=== PATIENT | male | born 1940 | race Caucasian/White ===

== ENCOUNTER 2025-03-14 09:14 | Emergency (ER) | payer MEDICARE, SELFPAY ==
--- OUTSIDE RECORDS SUMMARY | 2001-02-24 05:30 | XMS_ITS | Continuity of Care Document ---
Author Organization 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 No Information Feb-0 8-200 1 Leonardo OD Miguel. [address] , [address], [place], [address], [place]. tel:[phone] Family History Family Member Type Diagnosis Age At Onset No Information Payers Payer name Insurance type Covered democrat ID Authoriza tion(s) No Information Social History Type Description Quantity Date Captured Comments Sex Male Smoking Status No Information Chief Complaint And Reason For Visit No Information Reason For Referral Reason For Referral No Information History Of Present Illness Encounter Date Complaint History Of Prese nt Illness No Information Functional Status Date Functional Assessmen t No Information Instructions Date Instruction Additional Infor mation No Information Assessments Type Assessment Date No Information Patient Care Teams Name Effective Dates (start - stop) Status Members No Information
--- NOTE | ~2025-03-14 | CT_ITS ---
CT HEAD NON-CONTRAST Clinical History: head injury Comparison: None Technique: Unenhanced axial images skull base to vertex Coronal, sagittal reformats CT images acquired with automatic exposure control for dose reduction DLP: 681 mGy-cm Findings: Age-related atrophy. Chronic white matter microvascular ischemic changes. Sulci, ventricles: Unremarkable. No intracerebral hemorrhage. No evidence acute territorial infarct. No mass effect, midline shift. Bony calvarium intact. Visualized paranasal sinuses: Clear. Mastoid air cells: Clear. Left frontal scalp hematoma. IMPRESSION: 1. No acute intracranial findings. Reviewed, dictated and finalized at location R.
--- OUTSIDE RECORDS SUMMARY | 2025-03-14 09:16 | XMS_ITS | Encounter Summary ---
Author Organization [facility] Address [address] [place] [address] Phone Care Team Providers Care Yard Associate Name Role Phone Iram KnightRosendo PT Unavailable [phone] Amy Goodwin DPT Unavailable [phone] Miguel Piedra MD Primary Care Provider [phone] Encounter Details Date Type Department Care Team (Late st Contact Info) Description 12/10/2022 Telephone [facility] Medicine Cardiology [address] [facility] [address] Medicine [address]th [place] [address] [place] [address] Boone Mejia MD PhD [address] [facility] [address] [place], [place] [id number] Social History Tobacco Use Types Packs/Day Years Used Date Smoking Tobacco: Former Cigarettes 1 18 0 05/20/1960 - 05/20/1978 Smokeless Tobacco: Never Comments:Smoking History Pac ks/day: 1 Packs Alcohol Use Standard Drinks/Week Comments No 0 (1 standard drink = 0.6 oz pur e alcohol) AUDIT-C Answer Date Recorded Q1: How often do you have a drink containing alcohol? Never 10/23/2021 Q2: How many drinks containi ng alcohol do you have on a typical day when you are drinking? Patient does not drink Q3: How often do you have si x or more drinks on one occasion? 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 Gender Identity Not on file Sexual Orientation Not on file documented as of this encounter Plan of Treatment Upcoming Encounters Date Type Department Care Team (Late st Contact Info) Description 09/21/2025 7:30 AM CDT Hospital Encounter [address] [address] Miguel العلي DO [address] [facility] [address] [place] [address] 09/21/2025 7:30 AM CDT - 09/21/2025 8:00 AM CDT Surgery [address] [address] Miguel العلي DO [address] [facility] [address] [place] [address] COLONOSCOPY Scheduled Procedures Name Priority Associated Diagnoses Date/Ti me COLONOSCOPY Encounter for screening colonoscopy 09/21/2025 7:30 AM CDT documented as of this encounter Visit Diagnoses Not on filedocumented in this encounter Care Teams Yard Associate Relationship Specialty Start Date End Date Miguel Piedra MD [address] [place] [address] PCP - General Family Medicine 10/23/21 Iram Knight, PT Physical Therapist Physical Therapy 11/07/17 Amy Goodwin DPT Physical Therapist Physical Therapy 11/07/17 documented as of this encounter
--- OUTSIDE RECORDS SUMMARY | 2025-03-14 09:17 | XMS_ITS | Data Portability ---
Author Organization [place] - [facility] [address] Address [address] [place] [address] Care Team Providers Care Mysql Developer Name Role Phone LUIZ KAUR Primary Care Provider RAPHAEL DOWLING Orthopedic Surgeon Assessment Encounter Date Assessment Date Assessment LastModified by Organization Details LastModified Time 05/30/2022 05/30/2022 He has arthritis of his hip is also having some back issues I suspect he has a component of spinal stenosis Not available 06/06/2022 07:02:28 Plan of Treatment Reminders Order Date Submit Date Provider Last Modified By Organization Details Last Modified Time Details Appointments None recorde d. Lab rapid SARS CoV 2 Ag, QL IA, respira tory specime n 2024 025 [email or web address] In-Office Order, Internal Use Only DO Not Attach Compendium DO Not Attach Compendium, Do Not Delete/merge, 5 09:13:35 rapid flu (A+B) 2024 025 [email or web address] In-Office Order, Internal Use Only DO Not Attach Compendium DO Not Attach Compendium, Do Not Delete/merge, 09:13:35 infecti ous disease panel 2024 025 [facility], [address], [place], [address], 5 08:19:55 Referral physica l therapi st referra l 2022 023 [email or web address] [facility] (PT/OT), [address] [facility], [address], [address], 3 07:49:[address] referra l 2022 023 [email or web address] Not available 3 08:08:25 Procedures None recorde d. Surgeries None recorde d. Imaging MRI, lumbar spine, w/o contras t 2022 023 SUJIT Not available 3 15:36:13 CT, lumbar spine, w/o contras t 2022 023 SUJIT Not available 3 16:28:49 Medication Orders benzona escalante 100 mg capsule 2024 025 [facility] #[id number], [address] [place], [address], 5 09:18:25 Medrol (Dante) 4 mg tablets in a dose pack 2021 022 Not available 3 14:24:19 Patient Targets Encounter Date Encounter Id Patient Goals Patient Target Last Modified By Organization Details Last Modified Time 05/04/2022 [id number] X-ray of the right hip from the [facility] reveals advanced osteoarthritis of the right hip with some subluxation lateral subluxation [id number] Not available 05/04/2022 10:18:02 05/30/2022 [id number] X-ray of the right hip from the [facility] reveals advanced osteoarthritis of the right hip with some subluxation lateral subluxation [id number] Not available 05/30/2022 14:22:26 Patient Instructions Encounter Date Encounter Id Patient Instructions Last Modified By Organization Details Last Modified Time 05/04/2022 [id number] Activity level was discussed with patient. All limitations and mobility were reviewed with the patient. Precautions including limitations on lifting, elevation and driving were discussed. The patient was given a Medrol Dosepak. The instructions for taking the medication was given to the patient including not to take it on an empty stomach. Some side effects were discussed including feeling anxious and flush. The patient will call the office with any adverse side effects Not available 05/04/2022 10:24:17 05/30/2022 [id number] Activity level was discussed with patient. All limitations and mobility were reviewed with the patient. Precautions including limitations on lifting, elevation and driving were discussed. An MRI was ordered because of persistent disease and discomfort. Physical therapy was prescribed for the patient. Formal physical therapy will begin with reducing the discomfort and swelling. It will then progress to range of motion and eventual strengthening. Protocols for physical therapy are well established and monitored by the physical therapist and myself. Not available 05/30/2022 14:36:57 Reason for Referral Physical Therapist Referral for Spinal stenosis Referring Physician: Raphael Dowling, Orthopedic Surgery, Encounter Date: 05/30/2022 Physical Therapist Referral for Osteoarthritis of hip Referring Physician: Raphael Dowling Orthopedic Surgery, Encounter Date: 05/30/2022 Results Created Date Observation Date Name Description Value Unit Range Abnormal Flag Note LastModifiedBy Organization Detail LastModifiedTime 07/12/1907/14/2024 [facility], C; mefa 21.052 ppm 23.000 - 27.611 abnormal Detec geronimo Not Available [facility] [address], [place], [address], 07/14/2024 08:19:55 07/12/1907/14/2024 [facility] tet B, tet M 22.424 ppm 23.000 - 27.778 abnormal Detec geronimo Not Available [facility] [address], [place], [address], 07/14/2024 08:19:55 07/12/1907/14/2024 [facility] covid-19 coronavirus (sars-cov-2) 0.000 ppm 23.000 - 32.500 normal Not Detec geronimo Not Available [facility] [address], [place], [address], 07/14/2024 08:19:55 07/12/1907/14/2024 [facility] enterovirus D68 0.000 ppm 23.000 - 32.117 normal Not Detec geronimo Not Available [facility] [address], [place], [address], 07/14/2024 08:19:55 07/12/1907/14/2024 [facility] haemophilus influenzae 27.524 ppm 19.961 - 24.689 abnormal Detec geronimo Not Available [facility] [address], [place], [address], 07/14/2024 08:19:55 07/12/1907/14/2024 [facility] human metapneumovi jennifer 0.000 ppm 23.000 - 32.210 normal Not Detec geronimo Not Available [facility] [address], [place], [address], 07/14/2024 08:19:55 07/12/1907/14/2024 [facility] influenza virus B 0.000 ppm 23.000 - 30.081 normal Not Detec geronimo Not Available [facility] [address], [place], [address], 07/14/2024 08:19:55 07/12/1907/14/2024 [facility] moraxella catarrhalis 0.000 ppm 19.961 - 24.689 normal Not Detec geronimo Not Available [facility] [address], [place], [address], 07/14/2024 08:19:55 07/12/1907/14/2024 [facility] mycoplasma pneumoniae 0.000 ppm 19.961 - 24.689 normal Not Detec geronimo Not Available [facility] [address], [place], [address], 07/14/2024 08:19:55 07/12/1907/14/2024 [facility] parainfluenz a virus (types 1, 2, 3, 4) 0.000 ppm 23.000 - 31.313 normal Not Detec geronimo Not Available [facility] [address], [place], [address], 07/14/2024 08:19:55 07/12/1907/14/2024 [facility] respiratory syncytial virus (rsvb_VI9999 0015_po) 0.000 ppm 23.000 - 31.722 normal Not Detec geronimo Not Available [facility] [address], [place], [address], 07/14/2024 08:19:55 07/12/1907/14/2024 [facility] streptococcu s pneumoniae 0.000 ppm 19.961 - 24.689 normal Not Detec geronimo Not Available [facility] [address], [place], [address], 07/14/2024 08:19:55 07/12/1907/14/2024 [facility] chlamydia pneumoniae 0.000 ppm 19.961 - 24.689 normal Not Detec geronimo Not Available [facility] [address], [place], [address], 07/14/2024 08:19:55 07/12/1907/14/2024 [facility] bordetella pertussis, parapertussi s, bronchisepti ca 0.000 ppm 19.961 - 24.689 normal Not Detec geronimo Not Available [facility] [address], [place], [address], 07/14/2024 08:19:55 07/12/1907/14/2024 [facility] coronaviruse s (229E, nl63, hku1, oc43) (g_betacoron avirus_1_g_c oronavirus_h ku1) 0.000 ppm 23.000 - 31.416 normal Not Detec geronimo Not Available [facility] [address], [place], [address], 07/14/2024 08:19:55 07/12/19 25 07/14/2024 [facility] rhinovirus/e nterovirus (RV_2of2_VI9 9990017_po) 0.000 ppm 23.000 - 32.985 normal Not Detec geronimo Not Available [facility] [address], [place], [address], 07/14/2024 08:19:55 07/12/19 25 07/14/2024 [facility] adenovirus (adv_1of2_VI 99990001_po) 0.000 ppm 23.000 - 31.943 normal Not Detec geronimo Not Available [facility] [address], [place], [address], 07/14/2024 08:19:55 07/12/19 25 07/12/2024 rapid flu (A+B) Infection Control Manager Cuauhtemoc Houser Not Available In-Office Order Internal Use Only DO Not Attach Compendium DO Not Attach Compendium, Do Not Delete/merge, 07/12/2024 09:07:41 07/12/1907/12/2024 rapid flu (A+B) Test Strip Lot Number [id number] Not Available In-Office Order Internal Use Only DO Not Attach Compendium DO Not Attach Compendium, Do Not Delete/merge, 07/12/2024 09:07:41 07/12/1907/12/2024 rapid flu (A+B) Test Strip Expiration Date 2025 Not Available In-Office Order Internal Use Only DO Not Attach Compendium DO Not Attach Compendium, Do Not Delete/merge, 07/12/2024 09:07:41 07/12/19 25 07/12/2024 rapid flu (A+B) Procedural Control Valid yes Not Available In-Off ice Order Internal Use Only DO Not Attach Compendium DO Not Attach Compendium, Do Not Delete/merge, 07/12/2024 09:07:41 07/12/1907/12/2024 rapid flu (A+B) Flu A negati ve Not Available In-Office Order Internal Use Only DO Not Attach Compendium DO Not Attach Compendium, Do Not Delete/merge, 07/12/2024 09:07:41 07/12/19 25 07/12/2024 rapid flu (A+B) Flu B negati ve Not Available In-Office Order Internal Use Only DO Not Attach Compendium DO Not Attach Compendium, Do Not Delete/merge, 07/12/2024 09:07:41 07/12/19 25 07/12/2024 rapid SARS CoV 2 Ag, QL IA, respi rator y speci men Is this the patient's first test for COVID-19? No Not Available In-Off ice Order Internal Use Only DO Not Attach Compendium DO Not Attach Compendium, Do Not Delete/merge, 07/12/2024 09:07:37 07/12/19 25 07/12/2024 rapid SARS CoV 2 Ag, QL IA, respi rator y speci men Is the patient symptomatic of COVID-19 per the CDC Guidelines? Yes Not Available In-O ffice Order Internal Use Only DO Not Attach Compendium DO Not Attach Compendium, Do Not Delete/merge, 07/12/2024 09:07:37 07/12/1907/12/2024 rapid SARS CoV 2 Ag, QL IA, respi rator y speci men If yes, date of onset symptoms (mm/dd/yy): 2024 Not Available In-Office Order Internal Use Only DO Not Attach Compendium DO Not Attach Compendium, Do Not Delete/merge, 07/12/2024 09:07:37 07/12/19 25 07/12/2024 rapid SARS CoV 2 Ag, QL IA, respi rator y speci men Is the patient employed in healthcare? No Not Available In-O ffice Order Internal Use Only DO Not Attach Compendium DO Not Attach Compendium, Do Not Delete/merge, 07/12/2024 09:07:37 07/12/19 25 07/12/2024 rapid SARS CoV 2 Ag, QL IA, respi rator y speci men Is the patient hospitalized ? No Not Available In-Off ice Order Internal Use Only DO Not Attach Compendium DO Not Attach Compendium, Do Not Delete/merge, 07/12/2024 09:07:37 07/12/19 25 07/12/2024 rapid SARS CoV 2 Ag, QL IA, respi rator y speci men Is the patient in the ICU? No Not Available In-Off ice Order Internal Use Only DO Not Attach Compendium DO Not Attach Compendium, Do Not Delete/merge, 07/12/2024 09:07:37 07/12/19 25 07/12/2024 rapid SARS CoV 2 Ag, QL IA, respi rator y speci men Congregate care resident (e.g. prison, homeless prison, etc.)? No Not Available In-Off ice Order Internal Use Only DO Not Attach Compendium DO Not Attach Compendium, Do Not Delete/merge, 07/12/2024 09:07:37 07/12/19 25 07/12/2024 rapid SARS CoV 2 Ag, QL IA, respi rator y speci men ? No Not Available In-Offic e Order Internal Use Only DO Not Attach Compendium DO Not Attach Compendium, Do Not Delete/merge, 07/12/2024 09:07:37 07/12/1907/12/2024 rapid SARS CoV 2 Ag, QL IA, respi rator y speci men [place] where patient [place]: [place] Not Available In-Office Order Internal Use Only DO Not Attach Compendium DO Not Attach Compendium, Do Not Delete/merge, 07/12/2024 09:07:37 07/12/19 25 07/12/2024 rapid SARS CoV 2 Ag, QL IA, respi rator y speci men LOT: [id number] Not Available In-Office Order Internal Use Only DO Not Attach Compendium DO Not Attach Compendium, Do Not Delete/merge, 07/12/2024 09:07:37 07/12/19 07/12/2024 rapid SARS CoV 2 Ag, QL IA, respi rator y speci men EXP: 2025 Not Available In-Office Order Internal Use Only DO Not Attach Compendium DO Not Attach Compendium, Do Not Delete/merge, [id number] 07/12/2024 09:07:37 07/12/19 25 07/12/2024 rapid SARS CoV 2 Ag, QL IA, respi rator y speci men COVID-19 Result: negati ve Not Available In-Office Order Internal Use Only DO Not Attach Compendium DO Not Attach Compendium, Do Not Delete/merge, [id number] 07/12/2024 09:07:37 04/25/20 22 04/20/2022 XR, hip + pelvi s, bilat eral, 2 view No observ ation record ed. [email or web address] Not Available 13:38:16 06/05/19 23 06/05/2022 CT, lumba r spine , w/o contr ast [facility] JUDD Corrales MRN:[id number] t: : [birth year]45 Sex Male : [facility]: Orderi ng Physic anupama: RAPHAEL JONES MD Comput ed Tomogr aphy ACCESS ION EXAM DATE/T ROMAN [id number] 023 15:29 EST Reason For Exam M48.06 2 Report PROCED URE INFORM ATION: Exam: CT Lumbar Spine Withou t Contra st Exam date and time: 023 3:30 PM Age: 81 years old Clinic al indica tion: Spinal stenos is, lumbar region with neurog enic claudi cation ; Pain; Additi onal info: M48.06 2 TECHNI QUE: Imagin g protoc ol: Comput ed tomogr aphy of the lumbar spine withou t contra st. Radiat ion optimi zation : All CT scans at this facili ty use at least one of these dose optimi zation techni ques: automa geronimo exposu re contro l; mA and/or kV adjust ment per patien t size (inclu delmy target ed exams where dose is matche d to clinic al indica tion); or iterat gricel recons tructi on. COMPAR IRAIS: No releva nt prior studie s availa ble. FINDIN GS: There is a levoco nvex mild lumbar scolio sis on pinedo l imagin g. On sagitt al imagin g lumbar verteb ral well-a ligned . There are change s of degene rative spondy losis with margin al osteop hyte format ion anteri dana loss in height of the L1-L2 L4-L5 and L5-S1 disc. Lumbar verteb ra mainta in in height . No lumbar fractu re or focal marrow replac ement. At L1-L2 spinal canal diamet er measur ements and forami na mainta ined. L2-L3 and L3-L4 spinal canal diamet er measur ements and forami na mainta ined. L4-L5 broad- based bulgin g annulu s and degene rative change s facet joints there is a subtle encroa chment inferi or aspect both forami na. L5-S1 wellness director ior bulgin g annulu s wellness director ior margin al osteop hyte format ion and degene rative change s facet joints . There is encroa chment inferi or aspect both forami na. Visual ized sacrum unrema rkable other than degene rative change s sacroi liac joints . IMPRES VIRGEN: Levoco nvex lumbar scolio sis with change s of degene rate spondy losis result ing in encroa chment inferi or aspect both forami na subtle nature L4-L5 and mild encroa chment inferi or aspect both forami na at L5-S1. AP diamet er spinal canal mainta ined at all levels . COMMEN TS: Unless otherw ise specif ied, incide ntal findin gs do not requir e dedica geronimo imagin g and follow -up. Comput ed Tomogr aphy Report Miguel Gregory MD On 2022 16:28: 28; VR-NPR [id number] Final Signed by: MIGUEL GREGORY MD Signed (Elect veronica Signat ure): 2022 04:28 pm EST [email or web address] [facility] [address] [address] [facility], [place], [address], 07/11/2022 15:52:50 06/06/19 23 05/30/2022 MRI, lumba r spine , w/o contr ast No observ ation record ed. BARCODE Not Available 2022 15:36:13 08/31/19 23 08/18/2022 US, echoc ardio gram, trans thora cic, compl ete, w/ color flow No observ ation record ed. [email or web address] Not Available 2022 10:10:19 Result Notes Documentation Provider Name and Address Organization Details Recorded Time Ct, Lumbar Spine, W/o Contrast : [facility] JUDD Marie t: : 1940 Sex Male : Locatio [facility] RAD n: Ordering Physician: RAPHAEL DOWLING MD Computed Tomography ACCESSION EXAM DATE/TIME [id number] 06/05/2022 15:29 EST Reason For Exam M48.062 Report PROCEDURE INFORMATION: Exam: CT Lumbar Spine Without Contrast Exam date and time: 06/05/2022 3:30 PM Age: 81 years old Clinical indication: Spinal stenosis, lumbar region with neurogenic claudication; Pain; Additional info: M48.062 TECHNIQUE: Imaging protocol: Computed tomography of the lumbar spine without contrast. Radiation optimization: All CT scans at this facility use at least one of these dose optimization techniques: automated exposure control; mA and/or kV adjustment per patient size (includes targeted exams where dose is matched to clinical indication); or iterative reconstruction. COMPARISON: No relevant prior studies available. FINDINGS: There is a levoconvex mild lumbar scoliosis on coronal imaging. On sagittal imaging lumbar vertebral well-aligned. There are changes of degenerative spondylosis with marginal osteophyte formation anteriorly loss in height of the L1-L2 L4-L5 and L5-S1 disc. Lumbar vertebra maintain in height. No lumbar fracture or focal marrow replacement. At L1-L2 spinal canal diameter measurements and foramina maintained. L2-L3 and L3-L4 spinal canal diameter measurements and foramina maintained. L4-L5 broad-based bulging annulus and degenerative changes facet joints there is a subtle encroachment inferior aspect both foramina. L5-S1 posterior bulging annulus posterior marginal osteophyte formation and degenerative changes facet joints. There is encroachment inferior aspect both foramina. Visualized sacrum unremarkable other than degenerative changes sacroiliac joints. IMPRESSION: Levoconvex lumbar scoliosis with changes of degenerate spondylosis resulting in encroachment inferior aspect both foramina subtle nature L4-L5 and mild encroachment inferior aspect both foramina at L5-S1. AP diameter spinal canal maintained at all levels. COMMENTS: Unless otherwise specified, incidental findings do not require dedicated imaging and follow-up. Computed Tomography Report Miguel Gregory MD On 06/05/2022 16:28:28; [id number] Final Signed by: MIGUEL GREGORY MD Signed (Electronic Signature): 06/05/2022 04:28 pm LINCOLN INFANTE NP [address] [facility],[address], [address], [place] - [facility] [place] 07/11/2022 15:52:50 Problems Name Problem SNOMED Code Status Onset Date Resolution Date Notes Provider Name and Address Organization Details Recorded Time Osteoarthri tis of hip 004635136 Active 2021 Whitney Dicostanz o, AUTOMOTIVE MAINTENANCE TECHNICIAN null, [place] - [facility] [place] 2 10:20:35 Subluxation of hip joint 932935718 Active 2021 Whitney Dicostanz o, AUTOMOTIVE MAINTENANCE TECHNICIAN null, [place] - [facility] [place] 2 10:21:51 Pain of right hip joint 5059992492524 02 Active 2021 Whitney Dicostanz o, AUTOMOTIVE MAINTENANCE TECHNICIAN null, [place] - [facility] [place] 2 10:21:58 Trochanteri c bursitis of right hip 1071645468156 00 Active 2021 Whitney Dicostanz o, AUTOMOTIVE MAINTENANCE TECHNICIAN null, [place] - [facility] [place] 2 10:23:36 Spinal stenosis 55468882 Active 2022 Whitney Dicostanz o, AUTOMOTIVE MAINTENANCE TECHNICIAN null, [place] - [facility] [place] 3 14:35:10 Haemophilus influenzae infection 47332980 Active 2024 ARACELI AGUSTIN [address] [place], [address], [facility] [place] 5 19:39:43 Problem Notes None recorded. Procedures Surgical History Date Name Laterality Status Provider Name and Address Organization Details Recorded Time 2 Right Troch Bursa Cortisone Injection - Beretta completed Whitney Rico AUTOMOTIVE MAINTENANCE TECHNICIAN [place] - [facility] [place] 05/04/2022 10:24:27 4 Pacemaker completed Aric White [place] - [facility]14 [place] 05/04/2022 10:16:07 hernia completed Aric White [place] - [facility] 4 [place] 05/04/2022 10:15:17 tonsilectomy/a denoids completed Aric White [place] - [facility] [place] 05/04/2022 10:15:27 repair in forearm completed Aric White [place] [facility] [place] 05/04/2022 10:15:52 Imaging Results None recorded. Procedure Notes None recorded. Medical Equipment None Reported. Allergies No known drug allergies Medications Name Sig Start Date Stop Date Status Note LastModified by Organization Details LastModified Time Medrol (Dante) 4 mg tablets in a dose pack Take 1 dose pk by oral route as directed . 05/30 completed Not Available Not Available Not Available benzonatate 100 mg capsule Take 1 capsule 3 times a day by oral route. 2024 active Not Available Not Available Not Avai lable amoxicillin 875 mg-potassium clavulanate 125 mg tablet Take 1 tablet every 12 hours by oral route for 10 days. 2024 active Not Available Not Available Not Avai lable escitalopram 10 mg tablet Take 1 tablet every day by oral route. active Not Available Not Available No t Available tamsulosin active Not Available Not Av ailable Not Available venlafaxine active Not Available Not A vailable Not Available hydrochlorot hiazide active Not Available Not Available Not Available simvastatin active Not Available Not A vailable Not Available lisinopril active Not Available Not Av ailable Not Available Eliquis 5 mg tablet Take 1 tablet twice a day by oral route. active Not Available Not Available No t Available aspirin 81 mg capsule Take 1 capsule every day by oral route. active Not Available Not Available No t Available Vitals Date Recorded Body height Body mass index (BMI) Body weight Provider Name and Address Organization Details Last Updated DateTime 05/30/2022 168.91 cm 26.6 kg/m2 66650.93 g Aric CHENG - [facility] [place] 05/30/2022 14:24:09 Date Recorded Body weight Body mass index (BMI) Body height Body temperature Heart rate Respiratory rate Oxygen saturation Oxygen saturation in Arterial blood by Pulse oximetry Pain severity - 0-10 verbal numeric rating [Score] - Reported Systolic And Diastolic Provider Name and Address Organization Details Last Updated DateTime 5 90500.9 3 g 26.6 kg/m2 168.91 cm 98.3 [degF] 71 /min 16 /min 97 % 97 % 3 115/70 mm[Hg] Lucy Lane [facility]14 [place] 5 09:04:58 Date Recorded Body height Body mass index (BMI) Body weight Provider Name and Address Organization Details Last Updated DateTime 05/04/2022 168.91 cm 26.6 kg/m2 03660.93 g Aric CHENG - [facility] [place] 05/04/2022 10:12:36 Social History Question Answer Notes LastModified by Organizat ion Details LastModified Time Tobacco Smoking Status Never [facility] [place] 05/04/2022 10:15:10 What Was The Date Of Your Most Recent Tobacco Screening? 05/04/2022 Information not available 05/04/2022 Has Tobacco Cessation Counseling Been Provided? No [email or web address] Information not available 05/04/2022 Sex: Male Functional Status Question Answer Note LastModified by Organization D etails LastModified Time Do you or have you ever used any other forms of tobacco or nicotine? No [email or web address] Information not available 05/04/2022 What is your level of alcohol consumption? None [email or web address] Information not available 05/04/2022 Mental Status None recorded. Family History Relationship Description Onset Age of this Age Resolved Age Notes LastModified by Organization Details LastModified Time Father Heart disease [email or web address] Not available 2021 10:14:52 Mother Family history of malignant neoplasm [email or web address] Not available 2021 10:14:58 Medical History Condition Response Has Pacemaker Y Heart Problems Y Hypertension Y High Cholesterol Y Past Encounters Encounter ID Performer Location Encounter Start Date Encounter Closed Date Diagnosis/Indication Diagnosis SNOMED-CT Code Diagnosis ICD10 Code Diagnosis IMO Codes Diagnosis Note [id number] RAPHAEL DOWLING MD [facility] [facility] [facility] [address] [facility] [address] [place] [address] 05/04/2022 09:29:30 05/04/2022 10:27:49 Pain of right hip joint 4954508991 25884 M25.551 Osteoarthritis of hip 23 6083222 M16.11 Anticoagulant therapy 18 4450253 Z79.01 Eliquis The patient is currently treated with a blood thinner for systemic disease. This medication significan tly increases the risks of surgical interventi on. They will have to stop the medication for period of time to prevent perioperat gricel bleeding. At that time there would be at risk for blood clots, pulmonary embolism and strokes. Measures to counteract those complicati ons would include hydration, early mobilizati on, deep breathing, ankle pumps and a walking program. In addition there is evidence in the literature that the use of anticoagul ants significan tly increases the risk of postoperat gricel infections . It also diminishes the ultimate clinical outcome of surgical procedures Cardiac pa cemaker in situ [id number] Z95.0 Patient has an indwelling pacemaker that is not compatible with an MRI. That significan tly complicate s the diagnosis. The diagnosis will have to be determined by clinical examinatio n and history. In addition the response to nonsurgica l treatment will be taken into considerat ion. In some cases a CAT scan would be a secondary diagnostic procedure but would not be significan tly helpful for soft tissue considerat ions Subluxatio n of hip joint [id number] S73.001A Trochanter ic bursitis of right hip [id number] 35135 M70.61 After appropriat e consent was obtained from the patient, an injection of 1 cc of Depomedrol 80 mg/mL and 3 cc Lidocaine 1% was given to right troch bursa. There was careful preparatio n of the skin with alcohol. Adverse reactions were discussed with the patient and it was recommende d icing be performed on the night of the injection. Additional diagnosis , treatment, tests or referrals and instructio ns are not part of the procedure or for postproced ural care. The injection procedure was performed due to pain and dysfunctio n that is now affecting activities of daily living, concentrat ion and bodily functions. The pain is refractory to other modalities of treatment. This is the only diagnosis associated with the procedure today. [id number] RAPHAEL DOWLING MD [facility] [address] [facility] [address] [place] [address] 05/30/2022 14:02:38 05/30/2022 15:05:00 Osteoarthritis of hip [id number] M16.11 Trochanter ic bursitis of right hip [id number] 36928 M70.61 Subluxatio n of hip joint [id number] S73.001A Anticoagulant therapy 18 [id number] Z79.01 Eliquis The patient is currently treated with a blood thinner for systemic disease. This medication significan tly increases the risks of surgical interventi on. They will have to stop the medication for period of time to prevent perioperat gricel bleeding. At that time there would be at risk for blood clots, pulmonary embolism and strokes. Measures to counteract those complicati ons would include hydration, early mobilizati on, deep breathing, ankle pumps and a walking program. In addition there is evidence in the literature that the use of anticoagul ants significan tly increases the risk of postoperat gricel infections . It also diminishes the ultimate clinical outcome of surgical procedures Cardiac pa cemaker in situ [id number] Z95.0 Patient has an indwelling pacemaker that is not compatible with an MRI. That significan tly complicate s the diagnosis. The diagnosis will have to be determined by clinical examinatio n and history. In addition the response to nonsurgica l treatment will be taken into considerat ion. In some cases a CAT scan would be a secondary diagnostic procedure but would not be significan tly helpful for soft tissue considerat ions Spinal stenosis [id number] M48.062 This is a chronic, progressiv e, debilitati ng condition with intermitte nt severe exacerbati ons that will significan tly affect activities of daily living because of pain, deformity, weakness and immobility . The patient is now exhibiting an acute severe exacerbati on with accelerati on of symptoms. [id number] Artem lopez MD [facility] [address] [facility] [address] [place] [address] 07/12/2024 08:35:53 07/13/2024 08:52:37 Upper respiratory infection [id number] J06.9 84 yo male with resp infection sx for 6 dayscovid and flu negative; discused with the ptno CURB criteria for admission if an eventual pneumoniah trx pending and will manage as neededuse steamer, nasal saline rinse twice a day ,gargle with salt and water ,chlorasep tic spraypt does not feel that baduse vit C,D,Zinc, bone broth ,honey ,domenica ,turmeric ,probiotic benzonatat e prescribed for coughfollo w up in few days if not betterSeek medical attention right away if worse, new symptoms or concerns. Health Concerns Section Related Observation LastModified by Organization Detai ls LastModified Time None Recorded Concern Status LastModified by Organization Details LastModified Time None Recorded Advance Directives Directive None Recorded Payers Insurance Date Sequence Insurance Name Policy Number Policy Disla Covered Member ID Disla Member ID Guarantor Name 07/11/2024 1 [employer] (PPO) [id number] 1 Judd Andrade [id number] Judd Andrade 06/11/2022 1 [facility] (MEDICARE REPLACEMENT/ ADVANTAGE - PPO) [id number] Judd Andrade [id number] Juddtanya Andrade 06/11/2022 1 [facility] (PPO) Judd Andrade [id number] Juddtanya Andrade 05/30/2022 1 *SELF PAY* Ra eri Andrade Notes Date Note Type Note Provider Name and Address Organization Details Recorded Time 05/04/20 22 text/htm l Hip(s)Reported by PatientHPIFor associated symptoms, patient reportsweakness. For location, patient reportsright. For quality, patient reportsaching,constant, andworsening. For severity, patient reportssevere. For duration, patient reportscontinuous since onset. For timing, patient reportschronicandabrupt. For context, patient reportsoveruse. For alleviating factors, patient reportsrestandlimited weight bearing. For aggravating factors, patient reportsromandweightbearing. For previous surgery, patient reportsnone. For prior imaging, patient reportsx ray (rad reg 04/20/2022). For previous injections, patient reportsnone. For previous pt, patient reportsnone. For work related, patient reportsno. For working, patient reportsno. RAPHAEL DOWLING MD [address], [place], [address], [facility] [place] 05/09/2022 08:01:40 05/30/19 23 text/htm l Hip(s)Reported by PatientHPIFor associated symptoms, patient reportsweakness. For location, patient reportsright. For quality, patient reportsaching,constant, andworsening. For severity, patient reportssevere. For duration, patient reportscontinuous since onset. For timing, patient reportschronicandabrupt. For context, patient reportsoveruse. For alleviating factors, patient reportsrest,limited weight bearing,nsaids (completed medrol dose dante 04/2022), andcortisone injection. For aggravating factors, patient reportsromandweightbearing. For previous surgery, patient reportsnone. For prior imaging, patient reportsx ray (rad reg 04/20/2022). For previous injections, patient reportsdid not help (05/04/2022). For previous pt, patient reportsnone. For work related, patient reportsno. For working, patient reportsno. RAPHAEL DOWLING MD [address], [place], [address], [facility] [place] 06/06/2022 07:02:31 07/12/19 25 text/htm l Upper Respiratory Symptoms - [id number] by PatientHPIFor associated symptoms, patient reportscough,nasal congestion,sore throat, andfeverbut reportsno sneezing,no headache,no chills,no myalgias/arthralgias,no sinus pain,no sputum production,no ear pain,no ear discharge,no nausea,no vomiting,no diarrhea,no abdominal pain,no shortness of breath (dyspnea),no wheezing,no chest pain,no dizziness,no vision disturbances, andno rash. For onset, patient reportssudden. For duration, patient reports6 days. For modifying factors, patient reportsotc medication(s)andtylenol. For risk factors, patient reportsolder than 65 years old.ROS as noted in the HPI cough for 6 days ,fever 101 yesterday not today ; cough productive but no sputum; lethargic ,ST ,slight runny nose,mild Crina MD [address] [place], [address], [facility] [place] 07/12/2024 18:22:21
--- OUTSIDE RECORDS SUMMARY | 2025-03-14 09:17 | XMS_ITS | Encounter Summary ---
Author Organization [facility] Address [address] [place] [address] Phone Care Team Providers Care Custom Frame Assembler Name Role Phone Jean Marie Zimmer MD Primary Care Provider Jean Marie Zimmer MD Primary Care Provider Iram Knight PT Unavailable [phone] Amy Goodwin DPT Unavailable [phone] Miguel Piedra MD Primary Care Provider [phone] Encounter Details Date Type Department Care Team (Late st Contact Info) Description 08/13/2013 Orders Only [facility] Provider, MD Da [address] [place] [address] Social History Tobacco Use Types Packs/Day Years Used Date Smoking Tobacco: Never Assessed Sex and Gender Information Value Date Recorded Sex Assigned at Not on file 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 Gender Identity Not on file Sexual Orientation Not on file documented as of this encounter Plan of Treatment Upcoming Encounters Date Type Department Care Team (Late st Contact Info) Description 09/21/2025 7:30 AM CDT Hospital Encounter [facility] [address] [place] [address] Miguel العلي, DO 4 [facility] [place] [address] 09/21/2025 7:30 AM CDT - 09/21/2025 8:00 AM CDT Surgery [facility] [address] [place] [address] Miguel العلي, [address] [place] [address] [place] [address] COLONOSCOPY Scheduled Procedures Name Priority Associated Diagnoses Date/Ti me COLONOSCOPY Encounter for screening colonoscopy 09/21/2025 7:30 AM CDT documented as of this encounter Procedures Procedure Name Priority Date/Time Associated Diagnosis Comments CARDIOLOGY REPORT 08/13/2013 documented in this encounter Results * CARDIOLOGY REPORT (08/13/2013) Anatomical Region Laterality Modality Other Narrative 08/13/2013 Ordered by an unspecified provider. us Historical Provider [facility] MARIA G WOLFE Final Result documented in this encounter Visit Diagnoses Not on filedocumented in this encounter Additional Health Concerns Infection Onset Date Last Indicated Resolved Time COVID: Suspected 10/01/2021 10/01/2021 10/01/2021 3:51 PM CDT COVID: Suspected 10/01/2021 10/01/2021 10/01/2021 8:43 PM CDT documented as of this encounter Care Teams Custom Frame Assembler Relationship Specialty Start Date End Date Jean Marie Zimmer MD PCP - General 11/15/14 10/22/21 Jean Marie Zimmer MD PCP - General 01/08/11 11/14/14 [place] [address] PCP - General Family Medicine 10/23/21 Iram Knight PT Physical Therapist Physical Therapy 11/07/17 Amy Goodwin DPT Physical Therapist Physical Therapy 11/07/17 documented as of this encounter
--- OUTSIDE RECORDS SUMMARY | 2025-03-14 09:17 | XMS_ITS | Clinical Summary ---
Author Organization [facility] Address [address] [place] [address] Phone Care Team Providers Care Pedodontist Name Role Phone Jean Marie Zimmer MD Primary Care Provider Social History Tobacco Use Types Packs/Day Years Used Date Smoking Tobacco: Never Assessed Sex and Gender Information Value Date Recorded Sex Assigned at Not on file Legal Sex Male 10:42 PM CDT Gender Identity Not on file Sexual Orientation Not on file Plan of Treatment Health Maintenance Due Date Last Done Comments Hepatitis C Virus (HCV) Screening 1940 TdaP Immunization 1940 Pneumococcal Immunization (5 0+ years) (1 of 1 - PCV) 1992 Zoster Immunization (1 of 2) 1992 Respiratory Syncytial Virus (RSV) Immunization (Adult) (1 - 1-dose 75+ series) 2017 Influenza Immunization (#1) 2025 SARS-COV-2 Immunization ( - season) 2025 Hepatitis B Immunization Aged Out No longer eligible based on patient's age to complete this topic Human Papillomavirus (HPV) Immunization Aged Out No longer eligible b ased on patient's age to complete this topic Meningococcal Immunization (ACWY) Aged Out No longer eligible based on patient's age to complete this topic Rotavirus Immunization Aged Out No lo nger eligible based on patient's age to complete this topic Insurance MEDICARE [facility] Care Teams Pedodontist Relationship Specialty Start Date End Date Jean Marie Zimmer MD [address] [place] [address] PCP - General Internal Medicine 04/01/15
--- OUTSIDE RECORDS SUMMARY | 2025-03-14 09:17 | XMS_ITS | Clinical Summary ---
Author Organization [facility] Address [address] [place] [address] Care Team Providers Care Food Inspector Name Role Phone Miguel Piedra MD Primary Care Provider [phone] Source Comments [facility],non-owned Affiliates and Associated Physician Practices is amultiple site organization consisting of ambulatory clinics and hospital sitesin [place], [place], [place] and [place]. This disclosure is being madepursuant to the Care Everywhere program and may not contain all information available regarding this patient. Last updated 18.[facility] Allergies No known active allergies Medications * Be aware that medications may not be up to date on this document. Alwaysverify current medications with the patient. hydroCHLOROthiaz mehdi (HYDRODIURIL) 25 MG tablet Take 1 (one) tablet by mouth once daily 0 Active lisinopril (PRINIVIL; ZESTRIL) 40 MG tablet Take 1 (one) tablet by mouth 2 times daily 1 Active oxybutynin (DITROPAN) 5 MG tablet Take 1 (one) tablet by mouth once daily 0 Active pimecrolimus (ELIDEL) 1 % cream APPLY TO RASH AREAS ON GROIN AREA TWICE DAILY FOR FLARES THEN TWICE WEEKLY FOR MAINTENANCE. 1 Active simvastatin (ZOCOR) 40 MG tablet Take 1 (one) tablet by mouth once daily 1 Active tacrolimus (PROTOPIC) 0.1 % ointmentIndicati ons:Contact dermatitis due to other agent, unspecified contact dermatitis type Apply to affected area on groin, inner thighs BID. 30 day supply. 60 g 2 1 Active hydrocortisone (HYTONE) 2.5 % ointment Apply to affected area twice daily. 30 days supply. 30 g 2 1 Active Additional Information Patient not taking.Reported on 12/15/2021 escitalopram (LEXAPRO) 10 MG tablet Take 1 (one) tablet by mouth once daily 2 Active venlafaxine XR 24hr (EFFEXOR XR) 75 MG capsule Take 2 (two) capsules by mouth once daily 2 Active ELIQUIS 2.5 MG tablet Take 1 (one) tablet by mouth 2 times daily 2 Active ketoconazole (NIZORAL) 2 % shampooIndicatio ns:Other seborrheic dermatitis Apply to face, leave on for 3 minutes, then rinse; three times weekly. 30 days supply 120 mL 3 2 Active ketoconazole (NIZORAL) 2 % creamIndications :Other seborrheic dermatitis APPLY TO SCALY AREAS ON FACE TWICE DAILY as needed 60 g 3 2 Active Active Problems Problem Noted Date Diagnosed Date Nonrheumatic aortic valve stenosis 12/10/2018 Overview (10/07/2020): Last Assessment & Plan: Asymptomatic. Previous 2D echocardiogram detailed above. F/U with coat room attendant recommended Gastroesophageal reflux disease without esophagi tis 11/07/2017 Overview (10/07/2020): Last Assessment & Plan: Optimized with dietary modifications and health weight Glucose intolerance (impaired glucose tolerance) 02/14/2017 Medicare annual wellness visit, subsequent 02/14 Mixed hyperlipidemia 02/14/2017 Overview (10/07/2020): Last Assessment & Plan: Optimized on current therapy with both aspirin and Coumadin therapy for anti thrombolytics therapy, Zocor, and low-fat/heart healthy diet. Also Cnt. With mild to moderate daily exercise for further heart health. F/U with Cardiology as recommended Benign hypertension 08/18/2016 Overview (10/07/2020): Last Assessment & Plan: Normotensive in clinic today. Pt was advised of continuing heart healthy DASH diet, current antihypertensives, increase exercise as tolerated. Risk of HTN were reviewed. 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 Cnt. Metoprolol for rate control. Pt was made aware to stop Coumadin therapy 5 days prior to upcoming blepharoplasty, understanding the risk associated with stroke, thrombi development when deciding to stop medication. He does accept these risks and wishes to move forward with surgery to resume Coumadin dosing after per cardiology's recommendation Family History Medical History Relation Name Comments None Known Brother None Known Father None Known Maternal Aunt None Known Maternal Grandfather None Known Maternal Grandmother None Known Maternal Uncle None Known Mother None Known Other None Known Paternal Aunt None Known Paternal Grandfather None Known Paternal Grandmother None Known Paternal Uncle None Known Sister Asthma Neg Hx CVA Neg Hx Cancer - Breast Neg Hx Cancer - Other Neg Hx Cancer - Skin, Melanoma Neg Hx Cancer - Skin, Non Melanoma Neg Hx Eczema Neg Hx Hemophilia Neg Hx Psoriasis Neg Hx Relation Name Status Comments Brother Father Maternal Aunt Maternal Grandfather Maternal Grandmother Maternal Uncle Mother Other Paternal Aunt Paternal Grandfather Paternal Grandmother Paternal Uncle Sister Social History Tobacco Use Types Packs/Day Years Used Date Smoking Tobacco: Never Smokeless Tobacco: Never Sex and Gender Information Value Date Recorded Sex Assigned at Not on file Legal Sex Male 9:31 AM CDT Gender Identity Not on file Sexual Orientation Not on file Plan of Treatment Health Maintenance Due Date Last Done Comments DTAP/TDAP/TD VACCINES (1 - Tdap) 1961 PNEUMOCOCCAL VACCINE 50+ (1 of 2 - PCV) 1961 ZOSTER VACCINE (1 of 2) 1992 Respiratory Syncytial Virus (RSV) Vaccine Pt: or over 60 yrs (1 - 1-dose 75+ series) 2017 DEPRESSION SCREENING 05/20/2024 MEDICARE AWV CALENDAR YEAR 2024 COVID-19 VACCINE ( season) 2025 09/04/2021 INFLUENZA VACCINE (#1) 2025 2, 02/18/2019, 02/17/2018, Additional history exists HEPATITIS B VACCINE Aged Out No longe r eligible based on patient's age to complete this topic HIB VACCINE Aged Out No longer eligi ble based on patient's age to complete this topic HPV VACCINE Aged Out No longer eligi ble based on patient's age to complete this topic MENINGOCOCCAL (Group B) VACCINE SHARED DECISION-MAKING Aged Out No longer eligible based on patient's age to complete this topic MENINGOCOCCAL GROUPS A/C/Y/W VACCINE Aged Out No longer eligible based on patient's age to complete this topic Insurance [employer] MANAGED MEDICARE ADV AETNA AET[employer] Care Teams Food Inspector Relationship Specialty Start Date End Date Miguel Piedra MD [address] [place] [address] PCP - General Family Medicine 09/06/23
--- OUTSIDE RECORDS SUMMARY | 2025-03-14 09:17 | XMS_ITS | Data Portability ---
Author Organization [facility] [employer], [facility] Address [address] [place] [address] Care Team Providers Care Resident Manager Name Role Phone Unavailable Referring Provider [phone] ROSANNE ORDONEZ Primary Care Provider [phone] Assessment Encounter Date Assessment Date Assessment LastModified by Organization Details LastModified Time 08/18/2016 08/18/2016 X Rays suggestive of acute infiltrate (pending official report). Patient symptomatic. Counseled about condition and treatment. Will follow X Rays results and contact patient. RTC or visit primary doctor in 4 days. RTC or visit ER before if needed. [email or web address] Not available 08/18/2016 14:00:00 Plan of Treatment Reminders Order Date Submit Date Provider Last Modified By Organization Details Last Modified Time Details Appointments None record ed. Lab rapid flu (A+B) 2016 017 carina ramos In-Office Order, Internal Use Only DO Not Attach Compendium DO Not Attach Compendium, Do Not Delete/merge, [id number] 14:30:55 CBC 2015 016 [place] [facility], [address] [place], [address], 6 19:07:57 CMP, serum or plasma 2015 016 [place] [facility], [address] [place], [address], 6 19:08:02 urinal ysis, comple te 2015 016 [facility], [address], [place], [address], 6 19:31:56 vitami n D, 25-hyd timoteo + 1,25-d ihydro xy, serum 2015 016 [facility], [address], [place], [address], 6 19:08:01 PTH (parat hyroid hormon e), intact , serum or plasma 2015 016 [facility], [address], [place], [address], 6 19:31:55 lipid panel, serum 2015 016 [facility], [address], [place], [address], 6 19:31:53 venipu ncture 2015 016 [facility], [address], [place], [address], 6 19:07:58 PT/INR 2014 015 [facility], [address], [place], [address], 5 10:19:57 venipu ncture 2014 015 [facility], [address], [place], [address], 5 10:19:57 Referral None record ed. Procedures None record ed. Surgeries None record ed. Imaging x-ray, chest 2016 017 SUJIT [facility], [facility], All Locations, [place], [address], 7 14:27:41 x-ray, hip 2 views 2014 [facility], All Locations, [place], [address], 5 10:19:57 Medication Orders Zithro max Z-Dante 250 mg tablet 2016 017 [facility] [address] [place], [address], 7 13:58:13 ceftri axone 1 gram soluti on for inject ion 2016 017 [email or web address] nc Not available 7 14:30:55 Tussio nex Pennki netic ER 10 mg-8 mg/5 mL suspen surendra collins xtende d releas e [address] [facility] [address] [place], [address], 7 11:51:51 omepra zole 20 mg tablet ,delay ed releas e 2015 016 [facility] [address] [place], [address], 6 22:14:39 Os-Gaurang 500 + D3 500 mg-5 mcg (200 unit) tablet [address] [facility] [address] [place], [address], 7 12:31:30 Patient TargetsNo targets recorded. Patient Instructions Encounter Date Encounter Id Patient Instructions Last Modified By Organization Details Last Modified Time 03/25/2015 [id number] Keep leg elevated. Use warm compresses/heatin g pad. NATHANAEL wrap offered and refused. If increased pain, numbness or weakness, he will go to ER for further evaluation evan Not available 03/26/2015 10:19:57 06/20/2015 [id number] STOP TUMS START OSCAL PLUS D3 500MG/200UNITS TWICE A DAY START OMEPRAZOLE (OVER THE COUNTER) 20MG ONCE A DAY BRING ALL MEDICATIONS IN THEIR ORIGINAL BOTTLES TO YOUR NEXT APPOINTMENT EXERCISE 30-60 MINUTES 5-7 DAYS A WEEK OLD RECORDS araceli Not available 08/14/2015 22:14:39 PLEASE DO NOT US E THE PATIENT PORTAL FOR URGENT OR EMERGENT MESSAGES. Please do not call office for test results. Results will be given at your next scheduled visit. You will be contacted about any significantly abnormal exam as soon as it has been reviewed. After your follow up apt your test results will be available for you to review on your patient portal. Risks and benefits of treatment/therapy discussed with patient and family members if present. Pt. allowed ample time to ask any questions. Common side effects reviewed as well. Patient understands instructions and will seek medical attention if symptoms worsen as directed. Attachments.me program was used in part of the creation of this note. The voice recognition is set for speed over accuracy. Inherently this may result in phonetic, recognition or omissions errors in this stocking inspector. [email or web address] Not available 06/20/2015 11:48:10 08/18/2015 [id number] TUSSIONEX FOR COUGH Not available 08/18/2015 18:03:58 PLEASE DO NOT US E THE PATIENT PORTAL FOR URGENT OR EMERGENT MESSAGES. Please do not call office for test results. Results will be given at your next scheduled visit. You will be contacted about any significantly abnormal exam as soon as it has been reviewed. After your follow up apt your test results will be available for you to review on your patient portal. Risks and benefits of treatment/therapy discussed with patient and family members if present. Pt. allowed ample time to ask any questions. Common side effects reviewed as well. Patient understands instructions and will seek medical attention if symptoms worsen as directed. Rivono Speaking program was used in part of the creation of this note. The voice recognition is set for speed over accuracy. Inherently this may result in phonetic, recognition or omissions errors in this stocking inspector. Not available 08/18/2015 18:03:25 08/18/2016 [id number] bronchitis: care instructions SUJIT Not available 08/19/2016 05:46:34 Reason for Referral None Reported. Results Created Date Observation Date Name Description Value Unit Range Abnormal Flag Note LastModifiedBy Organization Detail LastModifiedTime 08/19/19 17 08/18/2016 rapid flu (A+B) influenza type A negati ve negati ve Not Available In-Office Order Internal Use Only DO Not Attach Compendium DO Not Attach Compendium, Do Not Delete/merge, [id number] 08/18/2016 13:14:34 08/19/19 17 08/18/2016 rapid flu (A+B) infulenza type B negati ve negati ve Not Available In-Office Order Internal Use Only DO Not Attach Compendium DO Not Attach Compendium, Do Not Delete/merge, [id number] 08/18/2016 13:14:34 03/25/20 15 03/25/2015 PT/IN R protime 27.6 sec 10.8-1 2.8 high Not Available [facility] [address], [place], [address], 03/25/2015 11:40:13 03/25/20 15 03/25/2015 PT/IN R INR 2.8 ratio 0.8-1. 2 high INR INTER PRETA TION: AN INR THERA PEUTI C RANGE OF 2.0-3 .0 IS RECOM SULEMAN D 1) PREVE NTION OF VENOU S THROM BOEMB OLISM IN HIGH RISK PATIE NTS 2) TREAT MENT OF VENOU S THROM BOSIS AND PULMO NARY EMBOL ISM AFTER A COURS E OF HEPAR IN 3) PREVE NTION OF SYSTE TIMOTHY EMBOL ISM IN A VARIE TY OF CONDI TIONS INCLU DING ATRIA L FIBRI LLATI ON AND PROST HETIC TISSU E HEART VALVE S 2.5-3 .5 IS RECOM SULEMAN D ONLY FOR PATIE NTS WITH MECHA NICAL HEART VALVE S & PATIE NTS WITH RECUR RENT SYSTE TIMOTHY EMBOL ISM. >5.0- 5.5 HIGH RISK BLEED ING Not Available [facility] [address], [place], [address], 03/25/2015 11:40:13 03/25/20 15 03/25/2015 venip unctu re venipuncture CHARGE Not Available [facility] [address], [place], [address], 03/25/2015 11:01:23 03/25/20 15 03/25/2015 RT hip 3V PELVIS AND RIGHT HIP: THREE VIEWS Histor y: Pain after injury . Compar gelacio: None. Findin gs: AP pelvis , and AP and obliqu e views of the right hip are submit geronimo. No acute fractu re or malali gnment . Mild degene rative joint space narrow ing is seen. Soft tissue s are unrema rkable . Impres dennis: 1. No acute proces s. Thank you for this referr alRosendo Granados onical ly signed Readin g Radiol ogist: Calvin Vidal MD build [address], [facility], 04/27/2015 04:09:56 08/21/19 17 08/18/2016 chest 2V CHEST: TWO VIEWS Histor y: Cough, conges tion, fever, fatigu e. Compar gelacio: No priors are availa ble for compar gelacio. Techni que: PA and latera l views are perfor med. Findin gs: Left chest pacema ker is presen t. The heart is slight ly enlarg ed. Medias tinal contou rs are normal . No eviden ce of conflu ent pneumo marine or CHF. Degene rative change s are noted in the thorac ic spine. Impres dennis: 1. Slight ly enlarg ed heart. Left chest pacema ker. No defini te acute diseas e. Thank you for this referr alRosendo Granados onical ly signed Readin g Radiol ogist: Jaida hilliard MD [email or web address], [address], 08/21/2016 08:48:44 Result Notes None recorded. Problems Name Problem SNOMED Code Status Onset Date Resolution Date Notes Provider Name and Address Organization Details Recorded Time Atrial fibrillation 85747241 Active [facility] 6 17:05:33 Hyperlipidemia 98583248 Active [facility] 6 17:05:33 Acid reflux 437591868 Active [facility] 6 17:05:33 Left sided abdominal pain 455255365 Active Rosanne Ordonez Jr, MD [address] [facility], [place], [address] [place] [address] 6 19:22:27 Benign hypertension 88601783 Active 2016 Jade Pearson [facility] 7 12:31:54 Problem Notes None recorded. Procedures Surgical History Date Name Laterality Status Provider Name and Address Organization Details Recorded Time 05/20/19 14 Other completed [facility] 06/20/2015 11:39:09 05/20/19 12 EGD-Upper Endoscopy completed [facility] 06/20/2015 11:36:07 05/20/19 11 Pacemaker implantation completed [facility] 06/20/2015 10:43:15 05/20/19 08 Hernia repair completed [facility] 06/20/2015 10:42:33 05/20/19 07 Colonoscopy completed [facility] 06/20/2015 11:35:15 Imaging Results None recorded. Procedure Notes None recorded. Medical Equipment None Reported. Allergies No known drug allergies Medications Name Sig Start Date Stop Date Status Note LastModified by Organization Details LastModified Time metoprolol succinate ER 50 mg tablet,ext ended release 24 hr Take 1 tablet every day by oral route. active Not Available Not Available No t Available Zithromax Z-Dante 250 mg tablet TAKE 2 TABLETS (500 MG) BY ORAL ROUTE ONCE DAILY FOR 1 DAY THEN 1 TABLET (250 MG) BY ORAL ROUTE ONCE DAILY FOR 4 DAYS 2016 active Not Available Not Available Not Avai lable venlafaxin e ER 150 mg capsule,ex tended release 24 hr Take 1 capsule every day by oral route. active Not Available Not Available No t Available simvastati n 40 mg tablet Take 1 tablet every day by oral route. active Not Available Not Available No t Available ceftriaxon e 1 gram solution for injection Take 1 g by injection route. 2016 active 1GM given IM Not Available Not Available Not Available warfarin 5 mg tablet Take 1 tablet every day by oral route. active Not Available Not Available No t Available hydrochlor othiazide 25 mg tablet Take 1 tablet every day by oral route. active Not Available Not Available No t Available Tussionex Pennkineti c ER 10 mg-8 mg/5 mL suspension ,extended release Take 5 mL every 12 hours by oral route for 10 days. 08/18 completed Not Available Not Available Not Available Os-Gaurang 500 + D3 500 mg-5 mcg (200 unit) tablet Take 1 tablet twice a day by oral route for 90 days. 08/18 completed Not Available Not Available Not Available aspirin 81mg once a day active Not Available Not Available No t Available calcium with Vitamin D3 600mg twice day 08/18 completed Not Available Not Available Not Available Glucosamin e daily active Not Available Not Available Not Available multivitam in once a day 08/18 completed Not Available Not Available Not Available omeprazole 20 mg tablet,del ayed release Take 1 tablet every day by oral route for 90 days. 2015 active Not Available Not Available Not Avai lable Allergy pill OTC 08/18 completed Not Available Not Available Not Available Vitals Date Recorded Body height Body weight Body mass index (BMI) Oxygen saturation Oxygen saturation in Arterial blood by Pulse oximetry Heart rate Body temperature Systolic And Diastolic Provider Name and Address Organization Details Last Updated DateTime 6 167.64 cm 95494.8 80236 g 30.4 kg/m2 97 % 97 % 53 /min 98.5 [degF] 110/60 mm[Hg] [facility] 6 10:44:54 Date Recorded Body weight Body mass index (BMI) Body height Heart rate Body temperature Oxygen saturation Oxygen saturation in Arterial blood by Pulse oximetry Systolic And Diastolic Provider Name and Address Organization Details Last Updated DateTime 6 27886.2 15837 g 31.3 kg/m2 167.64 cm 78 /min 98.5 [degF] 98 % 98 % 140/80 mm[Hg] [facility], [facility] 6 17:11:53 Date Recorded Body height Respiratory rate Body weight Body mass index (BMI) Heart rate Oxygen saturation Oxygen saturation in Arterial blood by Pulse oximetry Body temperature Systolic And Diastolic Provider Name and Address Organization Details Last Updated DateTime 7 167.64 cm 14 /min 22867.9 2 g 31.3 kg/m2 68 /min 90 % 90 % 102.4 [degF] 142/78 mm[Hg] Jade Delgadowiliam [facility], [facility] 7 12:30:13 Date Recorded Body weight Oxygen saturation Oxygen saturation in Arterial blood by Pulse oximetry Body height Body mass index (BMI) Body temperature Heart rate Systolic And Diastolic Provider Name and Address Organization Details Last Updated DateTime 5 71589.3 6556 g 97 % 97 % 168.91 cm 29.9 kg/m2 96.6 [degF] 80 /min 138/72 mm[Hg] Jose Tammy [facility], [facility] 5 10:11:58 Social History Question Answer Notes LastModified by [employer] Details LastModified Time Tobacco Smoking Status Former Smoker [facility] [place], [facility] 06/20/2015 10:42:34 How Much Tobacco Do You Chew? None Information not available 06/20/2015 Which Illicit Or Recreational Drugs Have You Used? No Information not available 06/20/2015 Alcohol Use No Information n ot available 03/25/2015 Marital Status Informatio n not available 06/20/2015 How Much Tobacco Do You Smoke? 1 PPD Information not available 06/20/2015 How Many Years Have You Smoked Tobacco? 15 Information not available 06/20/2015 Sex: Unknown Functional Status Question Answer Note LastModified by Organizat ion Details LastModified Time What is your level of alcohol consumption? None Information not available 06/20/2015 What is your occupation? retired Information not available 06/20/2015 What is your exercise level? Occasional Information not available 03/25/2015 Mental Status None recorded. Family History Relationship Description Onset Age of this Age Resolved Age Notes LastModified by Organization Details LastModified Time Mother 77 Cancer - lung cancer lfarinas Not available 08/18/2015 17:06:05 Father 92 Cardia c arrest lfarinas Not available 08/18/2015 17:06:05 Brother Backache 75 [email or web address] Not availabl e 08/18/2015 17:06:05 Brother Malignant neoplastic disease 66 lfarinas Not available 2015 17:06:05 Sister Malignant neoplasm of breast 37 lfarinas Not available 2015 17:06:05 Sister Malignant neoplasm of breast 63 lfarinas Not available 2015 17:06:05 Medical History Condition Response Cancer (location) N Other N Gout N Thyroid Disease N Kidney Stones N Emphysema/COPD N Measles/Mumps Y Sexually Transmitted Disease N Depression N Prostate Problems N Vascular Disease N Rash/Skin Condition N Amputation (location) N Parkinson's N Paralysis N Cardiac Pacemaker/defibrillator Y Headaches/Migraines N Nerve Damage / Neuropathy N Arthritis N Sleep disorder/Insomnia N Heart disease / Heart Attack N Crohn's Disease N HIV/AIDS N Stroke/TIA Y Colon Problems N High Cholesterol Y Serious Injuries N Kidney Disease N Memory Loss/Alzheimer's N High blood pressure Y Gallbladder disease N Congestive heart failure N Falls N Hormone Replacement N Blood Thinner Treatment Y Alcohol Overuse N Nervous Breakdown N Hernandez's Esophagus N Anemia N Urinary Problems N Colon Polyps N Gastritis N Hospitalizations (other than operations) N Diabetes N Back pain N Rheumatic Fever N Bleeding Disorder N Cardiac Arrhythmias /irregular heart rat e Y Osteopenia/Osteoporosis N Anxiety/Stress N Vision Problems N Asthma N Erectile / Sexual Dysfunction N Ostomies (location) N Seizures N Sleep Apnea N Jaundice N Hepatitis N Cirrhosis N GERD/Ulcer N Chicken Pox Y Allergies (other than meds) N Immunizations Vaccine Type Date Status Note Provider Nam e and Address Organization Details Recorded Time Influenza, split virus, quadrivalent, preservative 5 [facility] 06/20/2015 10:42:33 zoster live 0 [place] [facility], [facility] 06/20/2015 10:42:33 Past Encounters Encounter ID Performer Location Encounter Start Date Encounter Closed Date Diagnosis/Indication Diagnosis SNOMED-CT Code Diagnosis ICD10 Code Diagnosis IMO Codes Diagnosis Note [id number] Maggie Kuhn APRN [facility] [address] [place] [address] 03/25/2015 09:41:06 03/25/2015 11:50:19 Pain of hip region 76857146 M25.551 Xray is negative for fracture Anticoagulant therapy 18 3794468 Z79.01 Z51.81 - Reports compliance with warfarin therapy - Denies an unusual headache or a headache that is more severe than usual, no problems with unusual bruising, bleeding gums, blood in urine, bloody or dark stool, nosebleeds , or vomiting blood. INR 2.8 today Contusion of lower limb 00917068 S80.10XA [id number] Rosanne Ordonez Jr, MD [address] [place] [address] 06/20/2015 10:15:59 06/20/2015 11:56:49 Bradycardia 04599551 R00.1 Discussed the diagnosis as well as the risks and benefits of therapy/ev aluation. Patient understand s the risks and benefits of declining or accepting treatment. Please see patient discharge instructio ns for any additional informatio n concerning medical plan of care. Hypertensive disorder 38 519587 I10 Blood pressure under good control. Continue medication s. Encourage patient to continue to monitor blood pressure regularly. 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 Patient understand s the risks and benefits of declining or accepting treatment. Please see patient discharge instructio ns for any additional informatio n concerning medical plan of care. Osteopenia 799387278 M85 .80 Discussed the diagnosis as well as the risks and benefits of therapy/ev aluation. Patient understand s the risks and benefits of declining or accepting treatment. Please see patient discharge instructio ns for any additional informatio n concerning medical plan of care. Acid reflux 940490648 K2 1.9 Discussed the diagnosis as well as the risks and benefits of therapy/ev aluation. Patient understand s the risks and benefits of declining or accepting treatment. Please see patient discharge instructio ns for any additional informatio n concerning medical plan of care. Atrial fibrillation 4943 6004 I48.2 Stable. Controlled . Continue current therapy/me dical plan of care. Hyperlipidemia 14566661 E78.5 Discussed diagnosis as well as risks and benefits of therapy. Continue current therapy/me dical plan of care. Continue to follow at this time. Will check labs as appropriat e. [id number] MD SHARMAINE Meehan Jr [address] [place] [address] 08/18/2015 17:00:17 08/18/2015 18:06:41 Cough 39790605 R05 Discussed the diagnosis as well as the risks and benefits of therapy/ev aluation. Patient understand s the risks and benefits of declining or accepting treatment. Please see patient discharge instructio ns for any additional informatio n concerning medical plan of care. Left sided abdominal pain 598827761 R10.812 etiology is unclear. It seems as if it is probably a hematoma between the muscular layers. This is what's causing the pain. Does not look as if it is a abdominal hernia but it may be a fat Hernia.Dis cussed the diagnosis as well as the risks and benefits of therapy/ev aluation. Patient understand s the risks and benefits of declining or accepting treatment. Please see patient discharge instructio ns for any additional informatio n concerning medical plan of care. Feel it is important to control his cough more so for the abdominal discomfort that he suffered from at this time. [id number] Giorgio Pierre MD [facility] [address] [place] [address] 08/18/2016 11:42:53 08/20/2016 11:24:35 Fever 802619962 R50.9 Acute bronchitis 3874779 2 J20.9 Health Concerns Section Related Observation LastModified by Organization Detai ls LastModified Time None Recorded Concern Status LastModified by Organization Details LastModified Time None Recorded Advance Directives Directive None Recorded Payers Insurance Date Sequence Insurance Name Policy Number Policy Disla Covered Member ID Disla Member ID Guarantor Name 06/13/2016 1 [place] Judd Brownleesohn [id number] Judd Brownleesohn 01/19/2016 2 [place] Judd Brownleesohn [id number] Judd Brownleesohn 08/21/2016 1 [place] Judd Andrade [id number] Judd Brownleesohn 08/21/2016 2 [employer] - DOS PRIOR TO 20 - [facility] BENEFITS PLAN Judd Brownleesohn [id number] Judd Brownleesohn 09/18/2021 1 [facility] (MEDICARE REPLACEMENT/A DVANTAGE - PPO) [id number] Judd Andrade [id number] Judd Brownleesohn 08/18/2016 [facility] Notes Date Note Type Note Provider Name and Address Organization Details Recorded Time 5 text/html Musculoskeletal ComplaintReported by PatientHPIFor reason for visit, patient reportsacute complaint(10 days ago rt thigh on an unknown object at [facility]. he has had swelling and pain in his leg ever since). For quality, patient reportspain. For severity, patient reportsmoderate __. For onset/timing, patient reports__ days ago. For alleviating factors, patient reportsnothing. For aggravating factors, patient reportsnormal activity. For duration, patient reportsconstant. For context, patient reportsinjury. For associated symptoms, patient reportsno chest pain,no palpitations,no shortness of breath,no orthopnea,no abdominal pain,no nausea,no vomiting, andno headache(no numbness, tingling or burning senstaions). For location, (entire rt leg).ROS as noted in the HPI Maggie Kuhn, BAILING MACHINE OPERATOR [address], [place], [address], [facility], [facility] 03/26/2015 10:20:40 6 text/html Hypertension/Hypertensive diseasesReported by PatientHPIFor hypertension diagnosis, patient reportsbenign essential hypertension. For reason for visit, patient reportsestablishing care. For current therapy, patient reportsmedication list reviewedandusing other therapeutic lifestyle changes. For current control and compliance, patient reportsusually well controlled,usually compliant with regimen, andchecks bp regularly with home monitor.No edema. Metoporol & HCTZ tolerated without difficulty. GI Complaint*Reported by PatientGI ComplaintFor reason for visit, patient reportsestablishing care. For gastrointestinal symptoms, patient reportsheartburn / reflux.S/S flared up 2 years. DyslipidemiaReported by PatientHPIFor reason for visit, patient reportsestablishing care. For diagnosis, patient reportshyperlipidemia __. For current therapy, patient reportsmedication list reviewed,using diet and exercise, andusing other therapeutic lifestyle changes. For current control and compliance, patient reportsusually well controlled, asymptomaticandusually compliant with regimen. For current symptoms/concerns, patient reportsnone stated.Atorvastatin 40 mg. daily, tolerated without difficulty. AnxietyReported by PatientHPIFor reason for visit, patient reportsacute complaint. For anxiety type, patient reportsgeneralized anxiety disorder. For associated symptoms, patient reportsdenies suicidal ideations(obsessive compulsive behavior). Atrial Fibrillation*Reported by PatientHPIFor diagnosis*, patient reportschronic, permanent (unresponsive to cardioversion) __. For rate control:*, patient reportsrate controlled. For reason for visit, patient reportsestablishing care. For current therapy, patient reportswarfarin/coumadin. For current control and compliance, patient reportsusually well controlled/stable,usually compliant with regimen, andeating healthy meals. For current symptoms/concerns, patient reportsno side effects/concerns noted,no chest pain,no palpitations, andno worsening symptoms.2.2 INR last week. currently 5mg. 3 x weekly and 7.5 mg other days. Rosanne Ordonez Jr, MD [address] [facility] [address], [place], [address], [facility], [facility] 08/14/2015 22:15:00 6 text/html Cough / ColdReported by PatientHPIFor reason for visit, patient reportsacute complaint. For quality, patient reportsdry / nonproductive,deep,hacky, andparoxysmal. For severity, patient reportsmoderate __but reportsunchanged. For onset/timing, patient reportsseveral days ago. For alleviating factors, patient reportsnothing helps. For duration, patient reportsconstant. For context, patient reportsusual activity. For associated symptoms, patient reportsno fever,no cold/flu like symptoms, andno congestion.Has been coughing for one week. Does not cough up mucus. The cough keeps him up at night. He has pain on left side of abd. Rosanne Ordonez Jr, MD [address], [place], [address], [facility] [employer] [facility] 08/20/2015 19:23:10 7 text/html Cough / ColdReported by PatientHPIFor reason for visit, patient reportsacute complaint. For quality, patient reportsproductivebut reportspainless. For sputum quality, patient reportsyellow. For severity, patient reportsmoderate 7/ut reportsunchanged. For onset/timing, patient reportsgradualand1 days ago. For aggravating factors, patient reportslying down. For associated symptoms, patient reportsfever/chillsbut reportsno cold/flu like symptoms,no shortness of breath, andno congestion. For duration, patient reportsconstant. For context, patient reportsusual activity. For alleviating factors, patient reportscough syrup.Sudden onset of symptoms, complains of cough and no energy. Giorgio weaver MD [address], [place], [address], [employer] [place] [employer], [employer] 08/18/2016 14:30:45
--- OUTSIDE RECORDS SUMMARY | 2025-03-14 09:17 | XMS_ITS | Encounter Summary ---
Author Organization [facility] Address [address] [place] [address] Phone Care Team Providers Care Bulk Receiver Name Role Phone Jean Marie Zimmer MD Primary Care Provider Iram Knight PT Unavailable [phone] Amy Goodwin DPT Unavailable [phone] Miguel Piedra MD Primary Care Provider [phone] Encounter Details Date Type Department Care Team (Late st Contact Info) Description 10/06/2015 Orders Only [facility] Provider, MD Da [address] [place] [id number] Social History Tobacco Use Types Packs/Day Years Used Date Smoking Tobacco: Never Assessed Sex and Gender Information Value Date Recorded Sex Assigned at Not on file Legal Sex Male 11:56 PM [employer] Gender Identity Not on file Sexual Orientation Not on file documented as of this encounter Plan of Treatment Upcoming Encounters Date Type Department Care Team (Late st Contact Info) Description 09/21/2025 7:30 AM CDT Hospital Encounter [address] [address] Miguel العلي, DO [address] [place] [address] [place] [address] 09/21/2025 7:30 AM CDT - 09/21/2025 8:00 AM CDT Surgery [address] [place] [address] Miguel العلي, DO [address] [facility] [place] [address] COLONOSCOPY Scheduled Procedures Name Priority Associated Diagnoses Date/Ti me COLONOSCOPY Encounter for screening colonoscopy 09/21/2025 7:30 AM CDT documented as of this encounter Procedures Procedure Name Priority Date/Time Associated Diagnosis Comments CARDIOLOGY REPORT 10/06/2015 documented in this encounter Results * CARDIOLOGY REPORT (10/06/2015) Anatomical Region Laterality Modality Other Narrative 10/06/2015 Ordered by an unspecified provider. us Historical Provider [facility] MARIA G WOLFE Final Result documented in this encounter Visit Diagnoses Not on filedocumented in this encounter Additional Health Concerns Infection Onset Date Last Indicated Resolved Time COVID: Suspected 10/01/2021 10/01/2021 10/01/2021 3:51 PM CDT COVID: Suspected 10/01/2021 10/01/2021 10/01/2021 8:43 PM CDT documented as of this encounter Care Teams Bulk Receiver Relationship Specialty Start Date End Date Jean Marie Zimmer MD PCP - General 11/15/14 10/22/21 Miguel Piedra MD [address] [place] [address] PCP - General Family Medicine 10/23/21 Iram Knight, PT Physical Therapist Physical Therapy 11/07/17 Amy Goodwin DPT Physical Therapist Physical Therapy 11/07/17 documented as of this encounter
--- OUTSIDE RECORDS SUMMARY | 2025-03-14 09:17 | XMS_ITS | Clinical Summary ---
Author Organization [facility] Address [address] [place] [address] Care Team Providers Care Keno Attendant Name Role Phone Iram Knight PT Unavailable [phone] Amy Goodwin DPT Unavailable [phone] Miguel Piedra MD Primary Care Provider [phone] Allergies No known active allergies Medications aspirin (Jaqueline Low Dose Aspirin) 81 mg enteric coated tabletIndications :Chronic atrial fibrillation (HCC) Take 1 tablet (81 mg total) by mouth nightly 024 2025 Active apixaban (Eliquis) 5 mg tabletIndications :Chronic atrial fibrillation (HCC) Take 1 tablet by mouth twice daily 180 tablet 3 024 Active tamsulosin (FLOMAX) 0.4 mg extended release capsuleIndication s:Benign prostatic hyperplasia without lower urinary tract symptoms Take 1 capsule (0.4 mg total) by mouth daily 90 capsule 3 025 2025 Active hydroCHLOROthiazi de (HYDRODIURIL) 25 mg tabletIndications :Benign hypertension Take 1 tablet (25 mg total) by mouth daily 90 tablet 3 025 Active oxyBUTYnin (DITROPAN) 5 mg tabletIndications :Benign prostatic hyperplasia without lower urinary tract symptoms TAKE 1 TABLET BY MOUTH ONCE DAILY AT NIGHT 90 tablet 3 025 Active sildenafiL (VIAGRA) 100 mg tabletIndications :Erectile dysfunction, unspecified erectile dysfunction type Take 1 tablet (100 mg total) by mouth as needed for erectile dysfunction 10 tablet 2 Active venlafaxine XR (EFFEXOR-XR) 150 mg 24 hr capsuleIndication s:Major depressive disorder, recurrent, mild Take 1 capsule (150 mg total) by mouth daily Take with food. 90 capsule 3 025 2025 Active simvastatin (ZOCOR) 40 mg tabletIndications :Mixed hyperlipidemia Take 1 tablet (40 mg total) by mouth nightly 90 tablet 3 Active lisinopriL (PRINIVIL,ZESTRIL ) 40 mg tabletIndications :Benign hypertension Take 1 tablet by mouth twice daily 180 tablet 3 Active lisinopriL (PRINIVIL,ZESTRIL ) 40 mg tabletIndications :Benign hypertension Take 1 tablet by mouth twice daily 180 tablet 1 025 2024 Discontinued Active Problems Problem Noted Date Diagnosed Date Encounter for screening colonoscopy 12/30/2024 Benign prostatic hyperplasia without lower urinary tract symptoms 09/24/2023 Assessment & Plan (12/29/2024 11:20 AM CDT): Chronic, stable Continue Tamsulosin 0.4 mg daily and Oxybutynin 5 mg daily Assessment & Plan (12/18/2023 3:00 PM CDT): Chronic, stable Continue Tamsulosin 0.4 mg daily and oxybutynin 5 mg daily Assessment & Plan (09/24/2023 1:21 PM CDT): Stable, generally well controlled; no significant symptoms Would like to decrease medications Will hold tamsulosin daily and oxybutynin daily; can restart if symptoms return Major depressive disorder, recurrent, mild 05/05 Assessment & Plan (12/29/2024 11:18 AM CDT): Chronic, stable, well controlled Continue Venlafaxine 150 mg daily Assessment & Plan (02/24/2024 9:56 AM CDT): Chronic, stable, generally well controlled Continue Venlafaxine 150 mg daily Assessment & Plan (09/24/2023 1:21 PM CDT): Stable, well controlled; occasional symptoms; especially regarding mortality in setting of advancing age Decreased activity with [facility] Continue venlafaxine 150 mg daily Assessment & Plan (02/11/2023 3:57 PM CDT): Well controlled; patient has few symptoms; most related to outside stressors Continue Effexor 150 mg daily Assessment & Plan (11/05/2022 1:09 PM CDT): Stable, well controlled; no significant depression at this time Continue venlafaxine 150 mg daily Assessment & Plan (07/16/2022 9:51 AM MANAGER RENEWABLE ENERGY): Well controlled, continue to monitor, no need for medications at this time Assessment & Plan (10/23/2021 2:11 PM CDT): Patient reports some difficulty with transitioning from active life implement to [facility] Continue Lexapro 10 mg daily, Effexor 150 mg daily Stage 2 chronic kidney disease 05/05/2021 Nonrheumatic aortic valve stenosis 12/10/2018 Assessment & Plan (12/10/2018 1:53 PM CDT): Asymptomatic. Previous 2D echocardiogram detailed above. F/U with community health outreach worker recommended Acid reflux 11/07/2017 Assessment & Plan (02/24/2024 10:09 AM CDT): Assessment & Plan (02/11/2023 3:57 PM CDT): Stable, well controlled; no major episodes associated with acid reflux at this time Assessment & Plan (11/05/2022 1:09 PM CDT): Stable, well controlled; no major issues at this time; using Tums regularly Assessment & Plan (07/16/2022 9:51 AM MANAGER RENEWABLE ENERGY): GERD, stable, well controlled Continue to monitor encourage dietary changes Assessment & Plan (10/23/2021 2:11 PM CDT): Stable, well controlled; patient has been making dietary changes, and behavioral changes been avoiding eating night No current daily medication Continue to monitor Assessment & Plan (12/10/2018 1:50 PM CDT): Optimized with dietary modifications and health weight Glucose intolerance (impaired glucose tolerance) 02/14/2017 Assessment & Plan (07/16/2022 9:50 AM MANAGER RENEWABLE ENERGY): Well controlled, last A1c was 6.0 Continue to monitor, encourage low-carbohydrate diet Given age no need for medications Medicare annual wellness visit, subsequent 02/14 Mixed hyperlipidemia 02/14/2017 Assessment & Plan (12/29/2024 11:18 AM CDT): Chronic, stable Cholesterol and LDL at goal Continue Simvastatin 40 mg Assessment & Plan (02/24/2024 9:53 AM CDT): Chronic, stable LDL at goal Continue Simvastatin 40 mg daily Assessment & Plan (12/18/2023 2:59 PM CDT): Chronic, stable, well controlled Labs ordered Continue Simvastatin 40 mg nightly Assessment & Plan (09/24/2023 1:21 PM CDT): Stable, well controlled, lipids at goal Continue simvastatin 40 mg nightly Assessment & Plan (02/11/2023 3:56 PM CDT): Well controlled; Total and LDL CHolesterol at targets Continue simvastatin 40 mg nightly Assessment & Plan (11/05/2022 1:07 PM CDT): Stable, well controlled; LDL and total cholesterol at target Continue simvastatin 40 mg daily; encourage low-fat high-fiber diet Assessment & Plan (07/16/2022 9:50 AM MANAGER RENEWABLE ENERGY): Stable, well controlled; lipids at target Continue simvastatin 40 mg nightly Assessment & Plan (10/23/2021 2:10 PM CDT): Stable, patient reports no myalgias on current medication Continue simvastatin 40 mg daily Assessment & Plan (12/10/2018 1:52 PM CDT): Optimized on current therapy with both aspirin and Coumadin therapy for anti thrombolytics therapy, Zocor, and low-fat/heart healthy diet. Also Cnt. With mild to moderate daily exercise for further heart health. F/U with Cardiology as recommended Benign hypertension 08/18/2016 Assessment & Plan (12/29/2024 11:19 AM CDT): Chronic, stable BP at goal at visit; 112/70 Continue HCTZ 25 mg daily and Lisinopril 40 mg BID Follows with cardiology Assessment & Plan (02/24/2024 10:09 AM CDT): Chronic, stable, well controlled BP at goal at visit; 106/64 Follows with cardiology Continue HCTZ 25 mg daily, and Lisinopril 40 mg BID Assessment & Plan (12/18/2023 3:01 PM CDT): Chronic, stable, well controlled Follows with cardiology BP at visit; 96/60 Continue Lasix 40 mg daily, HCTZ 25 mg daily, and Lisinopril 40 mg daily Assessment & Plan (09/24/2023 1:20 PM CDT): Stable, well controlled, blood pressure at goal; no chest pain or pressure; no major side effects from medication Continue Lasix 40 mg daily, hydrochlorothiazide 25 mg daily, lisinopril 40 mg daily Assessment & Plan (02/11/2023 3:57 PM CDT): Stable, well controlled; blood pressure at target Continue hydrochlorothiazide 25 mg daily, lisinopril 40 mg daily Assessment & Plan (11/05/2022 1:08 PM CDT): Stable, well controlled; blood pressure at target; no chest pain orthostatics Continue hydrochlorothiazide 25 mg daily, lisinopril 40 mg daily Assessment & Plan (07/16/2022 9:49 AM MANAGER RENEWABLE ENERGY): Blood pressure at target today; home measurements are at target No chest pain or headaches, no orthostatics with medications Continue hydrochlorothiazide 25 mg daily, lisinopril 40 mg daily Assessment & Plan (10/23/2021 2:10 PM CDT): Stable, well controlled; blood pressure at target today Patient reports rare angina, followed by Cardiology Patient reports no headaches orthostatics Continue ASA 81 mg daily, HCTZ 25 mg daily, lisinopril 40 mg daily Assessment & Plan (12/10/2018 1:52 PM CDT): Normotensive in clinic today. Pt was advised of continuing heart healthy DASH diet, current antihypertensives, increase exercise as tolerated. Risk of HTN were reviewed. Presence of cardiac pacemaker 11/28/2010 Chronic atrial fibrillation 04/12/2009 Assessment & Plan (12/29/2024 11:20 AM CDT): Chronic, stable, regular rate/rhythm Follows with cardiology Continue Apixaban 5 mg BID and ASA 81 mg daily Assessment & Plan (02/24/2024 10:09 AM CDT): Chronic, stable, regular rate/rhythm Follows with cardiology Continue Apixaban 5 mg BID and ASA 81 mg daily Assessment & Plan (12/18/2023 3:03 PM CDT): Chronic, stable Follows with cardiology Continue Apixaban 5 mg daily Assessment & Plan (09/24/2023 1:21 PM CDT): No major bruising or bleeding; no blood in stool no melena Continue Eliquis 5 mg daily Assessment & Plan (02/11/2023 3:56 PM CDT): Well controlled; today in regular rate and rhythm Continue Eliquis 5 mg b.i.d., Assessment & Plan (11/05/2022 1:08 PM CDT): Stable, well controlled; rate controlled, no significant bruising or bleeding on anticoagulation Continue Eliquis 5 mg b.i.d., ASA 81 mg daily Assessment & Plan (07/16/2022 9:50 AM MANAGER RENEWABLE ENERGY): Stable, well controlled; no significant bruising or bleeding with current medications Continue apixaban 5 mg b.i.d. Assessment & Plan (10/23/2021 2:10 PM CDT): Stable, well controlled; complicated by bradycardia; patient has pacemaker in place for rate control Continue Eliquis 5 mg daily Assessment & Plan (12/10/2018 1:51 PM CDT): Follow-up with Cardiology as scheduled. Cnt. Metoprolol for rate control. Pt was made aware to stop Coumadin therapy 5 days prior to upcoming blepharoplasty, understanding the risk associated with stroke, thrombi development when deciding to stop medication. He does accept these risks and wishes to move forward with surgery to resume Coumadin dosing after per cardiology's recommendation Resolved Problems Problem Noted Date Diagnosed Date Resolved Date Iron deficiency anemia due t o chronic blood loss 11/05/2022 12/29/2024 Assessment & Plan (02/11/2023 3:57 PM CDT): Ferritin and Iron Profile in normal ranges CBC demonstrates no anemia, mild macrocytosis Continue to monitor No longer needs iron supplements Assessment & Plan (11/05/2022 1:10 PM CDT): Unclear etiology of iron deficiency; however iron profile and ferritin returning to normal; continues to have mild anemia with low H&H Continue ferrous sulfate 325; 1 tablet daily; recheck in approximately 2 months when completing therapy Nocturnal hypoxia 11/05/2022 12/18/2023 Assessment & Plan (11/05/2022 1:11 PM CDT): Patient reports smart watch reports 2-3 episodes of hypoxia overnight; does not occur every night; patient has no excessive daytime sleepiness; reports some snoring at night, but no witnessed apnea Will continue to monitor; if symptoms become more persistent and bothersome, consider referral to sleep Medicine for formal sleep study Bradycardia 02/11/2020 02/22/2020 Overview (02/11/2020): Added automatically from request for surgery [id number] Preop exam for internal medicine 12/10/2018 12/10/2018 Assessment & Plan (12/10/2018 1:54 PM CDT): Pt was advised to continue current therapy and medications for chronic conditions as previously as advised. Continue with healthy dietary management as well. Pt offered no additional complaints today in office. Preoperative medical clearance: Pt is medically stable and aware there are risk associated with surgery and anesthesia. He states the surgeon has reviewed these risk in detail with patient, and wishes to proceed with surgery. They are medically cleared for surgery at this time. As stated above. We did call over to Dr. Lorenzo is office to verify that preoperative clearance was able to be given today. Pt was made aware to stop aspirin 14 days prior and Coumadin 5 days prior to therapy along with other OTC medications to avoid prior to surgery as well. 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 12/18/2023 Assessment & Plan (10/23/2021 2:12 PM CDT): Stable, generally well controlled; patient had surgical repair, continues to have limitations in right hand including decreased strength and function Continue to monitor Atrial fibrillation 11/07/2015 12/11/19 19 Hypercholesterolemia 11/07/2015 018 Pain in shoulder 11/07/2015 02/22/2020 Hyperlipidemia 10/06/2015 02/17/2018 Sinus bradycardia 08/04/2010 02/17/2018 Temporary cerebral vascular dysfunction 04/12/2009 02/22/2020 Hypertension 04/12/2009 02/17/2018 Encounter for preventive health examination 10/07/2008 02/22/2020 Encounters Date Type Department Care Team Description 01/08/[address] [facility] Gastroenterology at [address] [place] [address] Sara York 12/30/2024 Orders Only [facility] Cardiology [address] [place] [address] [place] [address] Boone Mejia MD PhD 12/30/[address] [facility] Gastroenterology at [place] [address] [facility] [address] [place] [address] Sara York 12/29/2024 11:00 AM CDT Office Visit [facility] [address] [address] Lexie Yanez NP Medicare annual wellness visit, subsequent (Primary Dx); Benign prostatic hyperplasia without lower urinary tract symptoms; Benign hypertension; Erectile dysfunction, unspecified erectile dysfunction type; Major depressive disorder, recurrent, mild; Mixed hyperlipidemia; Screening for malignant neoplasm of colon; Chronic atrial fibrillation (HCC) 12/16/2024 Results Follow-Up [facility] [address] [address] Miguel Piedra MD CBC with auto differential, Comprehensive metabolic panel, Lipid panel, PSA screen 12/14/2024 Results Follow-Up [facility] Cardiology [facility] Advanced [facility] [address] [place] [address] [place] [address] Boone Mejia MD PhD Transthoracic Echo (TTE) Complete W Doppler/CF from Last 3 Months Immunizations Immunization Administration Dates Next Due Influenza, Quadrivalent, Hig h Dose, Preservative Free, Intrr 02/11/2023,02/14/2022,02/09/2021,02/21 Influenza, Quadrivalent, Spl it, Intramuscular 05/20/2014 Influenza, Split 02/21/2009 Influenza, Trivalent, Adjuva nted, Intramuscular 02/13/2024 Influenza, Trivalent, High D ose, Split, Preservative Free, Intramuscular 02/18/2019,02/17/2018,02/14/2017,02/06 Influenza, Trivalent, IM (MDV) 02/18/2013 Influenza, Unspecified 02/11/2023(Deferr ed: Patient Refused),04/02/2022 Kibin SARS-CoV-2 Monovalent Vaccination (12+ Yrs) PURPLE 09/04/2021 Pneumococcal Conjugate PCV 13 02/11/2015 Pneumococcal Conjugate Pcv20 02/14/2022 Pneumococcal Polysaccharide PPV23 02/21/2009 RSV Vaccine, Pref, Recombina nt, Subunit, Adjuvanted, PF, IM (Arexvy) 03/08/2023 Td, adsorbed 02/18/2019 ZOSTER LIVE 05/20/1999 Surgical History Surgery Date Site/Laterality Comments CARDIAC PACEMAKER PLACEMENT 05/20/2010 - 05/19/2011 Cardiac pacemaker OTHER SURGICAL HISTORY 05/20/2007 - 05/19/2008 umbilical hernia: surgical repair OTHER SURGICAL HISTORY broken toe, leg, as child: surgery toe. cast leg. OTHER SURGICAL HISTORY Right Right brachial plexus injury: Nerve transfer of supinator nerve to the anterior interosseus nerve, nerve transfer extensor carpi radialis brevis nerve to the profundus nerve OTHER SURGICAL HISTORY 08/18/2010 Medtronic VVIR Pacemaker HERNIA REPAIR CATARACT EXTRACTION 2018 HIP SURGERY 07/18/2022 - 08/17/2022 Right Surgery was performed in [place] by Dr. 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 2015 Iron deficiency anemia due t o chronic blood loss 11/05/2022 Family History Medical History Relation Name Comments Breast cancer Brother 2 Calvin Vogt Cancer Brother 2 Calvin Vogt Coronary artery disease Father Jagdeep Vogt Coronary artery disease; Diabetes type II Father Jagdeep Vogt Diabete s -Type 2; Cause of : Diabetes -Type 2 Heart attack Father Jagdeep Vogt Hypertension Father Jagdeep Vogt Hypertensio n - dad (Added by TW Conv) Cancer Mother Shavonne Vogt Lung cancer Mother Shavonne Vogt Cancer, lung; Breast cancer Sister 2 Cancer, breast ; Cause of : Cancer, breast Cancer Sister 3 Aric Catherine Relation Name Status Comments Brother 1 Alive Brother 2 Calvin Vogt Alive Father Jagdeep Vogt (Age 92) CAD S/ p CABG at age 70s Mother Shavonne Vogt Sister 1 Sister 2 Alive Sister 3 Aric Catherine Social History Tobacco Use Types Packs/Day Years Used Date Smoking Tobacco: Former Cigarettes 1 18 0 05/20/1960 - 05/20/1978 Smokeless Tobacco: Never Tobacco Cessation:Counseling Given: Not Answered Comments:Smoking History Packs/day: 1 Packs Alcohol Use Standard Drinks/Week Comments [...] points, staff should administer the PHQ-9) 0 12/29/2024 Sex and Gender Information Value Date Recorded Sex Assigned at Not on file Legal Sex Male 11:56 PM MANAGER RENEWABLE ENERGY Gender Identity Not on file Sexual Orientation Not on file Obstetrics History Last Filed Vital Signs Vital Sign Reading Time Taken Comments Blood Pressure 112/70 12/29/2024 10:56 AM CDT Pulse 78 12/29/2024 10:56 AM CDT Temperature 36.4 C (97.5 F) 12/29/2024 10:56 AM CDT Respiratory Rate 18 12/29/2024 10:56 AM CDT Oxygen Saturation 98% 12/29/2024 10:56 AM CDT Inhaled Oxygen Concentration - - Weight 74.8 kg (165 lb) 12/29/2024 10:56 AM CDT Height 167.6 cm (5' 6) 12/29/2024 10:56 AM CDT Body Mass Index 26.63 12/29/2024 10:56 AM CDT Plan of Treatment Upcoming Encounters Date Type Department Care Team (Late st Contact Info) Description 09/21/2025 7:30 AM CDT Hospital Encounter [facility] [address] [place] [address] Miguel العلي, [address] [place] [address] [place] [address] 09/21/2025 7:30 AM CDT - 09/21/2025 8:00 AM CDT Surgery [facility] [address] [place] [address] Miguel العلي, DO [address] [facility] [place] [address] COLONOSCOPY Scheduled Procedures Name Priority Associated Diagnoses Date/Ti me COLONOSCOPY Encounter for screening colonoscopy 09/21/2025 7:30 AM CDT Health Maintenance Due Date Last Done Comments Colon Cancer Screening-Colonoscopy 03/06/2022 03/06/2012, 03/06/2012 Covid-19 Vaccine ( season) 2025 02/13/2024, 03/08/2023, 02/14/2022, Additional history exists Influenza Vaccine (#1) 2025 , 02/11/2023, 04/02/2022, Additional history exists Prostate Cancer Screening-PSA 12/15/2025 12/15/2024, 12/18/2023, 10/23/2021, Additional history exists Abdominal Aortic Aneurysm (AAA) Screen 12/29/2025 Postponed from 2007 (Patient declined, but will receive in the future) DTaP/Tdap/Td Vaccine (1 - Tdap) 12/29/2025 02/18/2019 Postponed from 02/19/2019 (Insurance / Financial) Depression Screening 12/29/2025 12/29/2024, 02/24/2024, 12/18/2023, Additional history exists Fall Risk Assessment 12/29/2025 12/29/2024, 12/18/2023, 09/24/2023, Additional history exists Well Visit 65+ 12/29/2025 12/29/2024, 07/05/2023, 11/05/2022, Additional history exists Zoster Vaccine (2 of 3) 12/29/2025 05/20/1999 Post poned from 07/15/1999 (Insurance / Financial) Colon Cancer Screening-CT Colonography Discontinued 03/06/2012, 03/06/2012 Colon Cancer Screening-Sigmoidoscopy Discontinued 03/06/2012, 03/06/2012 Colon Cancer Screening-DNA Stool Discontinued 02/13/2021, 03/06/2012, 03/06/2012 Colon Cancer Screening-FIT Discontinued 02/13, 03/06/2012, 03/06/2012 Pneumococcal vaccine 65+ Completed 022, 02/11/2015, 02/21/2009 Hepatitis B Screening Completed 12/18/2023 Medical Devices Implanted Type Area Enterprise Manager Device Identifier Shelf Expiration Date Model / Serial / Lot Medtronic Cardiac Rhythm Mgmt [id number] Matthews Pacemaker Cardiac - [id number] - [id number] Implanted:Qty: 1 on 02/15/2020 by Boone Mejia MD PhD at [facility] Pacemaker [employer] 04/16/2021 [id number] / [id number] / Procedures Procedure Name Priority Date/Time Associated Diagnosis Comments DEVICE CHECK - REMOTE Routine 12/30/2024 3:24 AM CDT PSA SCREEN Routine 12/15/2024 8:24 AM CDT Screening PSA (prostate specific antigen) LIPID PANEL Routine 12/15/2024 8:24 AM CDT Benign hypertension Mixed hyperlipidemia COMPREHENSIVE METABOLIC PANEL Routine 12/15/2024 8:24 AM CDT Benign hypertension Mixed hyperlipidemia CBC WITH AUTO DIFFERENTIAL Routine 12/15/2024 8:24 AM CDT Benign hypertension Mixed hyperlipidemia STOOL DNA COLOGUARD Routine 02/13/2021 8:00 AM CDT Special screening for malignant neoplasms, colon Screening for malignant neoplasm of the rectum COLONOSCOPY 03/06/2012 12:00 AM CDT from Last 3 Months or Most Recently Relevant to Health Maintenance Results * DEVICE CHECK - REMOTE (12/30/2024 3:24 AM CDT) Anatomical Region Laterality Modality Other 12/30/2024 3:24 AM CDT Narrative 01/04/2025 12:03 PM CDT Interpretation Summary: Battery and Leads (BL) Normal parameters noted on battery and lead(s) --- 8.9 yrs remaining longevity (implanted 2019). Lead impedance and threshold trends stable and appropriate. No short V-V intervals. Presenting Rhythm (OR) Ventricular Pacing (SOLAR ENERGY CONSULTANT AND DESIGNER) --- SOLAR ENERGY CONSULTANT AND DESIGNER 51 bpm. Arrhythmic events (AE) Permanent atrial fibrillation --- Since 11/17/24: No VHR episodes. 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 Lead impedance and threshold trends stableand appropriate. No short V-V intervals. Presenting Rhythm (OR) Ventricular Pacing (SOLAR ENERGY CONSULTANT AND DESIGNER) --- SOLAR ENERGY CONSULTANT AND DESIGNER 51 bpm. Arrhythmic events (AE) Permanent atrial fibrillation --- Since 11/17/24: No VHR episodes. 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 The test result will be approximately 20% lower when compared to the equimolar-standardized total PSA (Marcela [place]). Comparison of serial PSA results should be interpreted with this fact in mind. This test was performed using the Siemens chemiluminescent method. Values obtained from different assay methods cannot be used interchangeably. PSA levels, regardless of value, should not be interpreted as absolute evidence of the presence or absence of disease. Blood 12/15/2024 8:24 AM CDT 12/15/2024 8:24 AM CDT Narrative [facility] - 12/16/2024 1:35 AM CDT FASTING:YES FASTING: YES Miguel Piedra MD LAB BLOOD ORDERABLES Juliann iverson Result [facility] [id number] [address] [place] [id number] * (ABNORMAL) CBC with auto differential (12/15/2024 8:24 AM CDT) Pathologist [facility] WBC 6.5 3.8 - 10.8 Thousand/u L [facility] RBC, POC 4.45 4.20 - 5.80 Million/uL [facility] Hgb 15.1 13.2 - 17.1 g/dL [facility] Hct 42.9 38.5 - 50.0 % [facility] MCV 96.4 80.0 - 100.0 fL [facility] MCH 33.9(H) 27.0 - 33.0 pg [facility] MCHC 35.2 32.0 - 36.0 g/dL [facility] Comment: For adults, a slight decrease in the calculated MCHC value (in the range of 30 to 32 g/dL) is most likely not clinically significant; however, it should be interpreted with caution in correlation with other red cell parameters and the patient's clinical condition. Rdw 12.2 11.0 - 15.0 % [facility] Platelets 235 140 - 400 Thousand/u L [facility] MPV 9.1 7.5 - 12.5 fL [facility] Neutrophils, abs 4,342 1,500 - 7,800 cells/uL [facility] Lymphocytes, abs 1,456 850 - 3,900 cells/uL [facility] Monocyte abs 559 200 - 950 cells/uL [facility] Eosinophils, abs 111 15 - 500 cells/uL [facility] Basophils, abs 33 0 - 200 cells/uL [facility] Neutrophils 66.8 % [facility] Lymphocyte pct 22.4 % [facility] Monocytes 8.6 % [facility] Eosinophils 1.7 % [facility] Basophils 0.5 % [facility] Blood 12/15/2024 8:24 AM CDT 12/15/2024 8:24 AM CDT Narrative [facility] - 12/16/2024 1:35 AM CDT FASTING:YES FASTING: YES Miguel Piedra MD LAB BLOOD ORDERABLES Juliann kishor Result [facility] [address] [place] [address] * Lipid panel (12/15/2024 8:24 AM CDT) Cholesterol 143 <200 mg/dL [facility] HDL 63 > OR = 40 mg/dL [facility] Triglycerides 83 <150 mg/dL [facility] LDL 63 mg/dL (calc) [facility] Comment: Reference range: <100 Desirable range <100 mg/dL for primary prevention; <70 mg/dL for patients with CHD or diabetic patients with > or = 2 CHD risk factors. LDL-C is now calculated using the Thomas-Dago calculation, which is a validated novel method providing better accuracy than the Friedewald equation in the estimation of LDL-C. Thomas CHENG et al. MICKI. 2013;310(19): 4996-7055 (http://education.AutoShag.159.com/faq/RRL372) Chol/HDL ratio 2.3 <5.0 (calc) [facility] Non-HDL, (LDL+VLDL) 80 <130 mg/dL (calc) [facility] Comment: For patients with diabetes plus 1 major ASCVD risk factor, treating to a non-HDL-C goal of <100 mg/dL (LDL-C of <70 mg/dL) is considered a therapeutic option. Blood 12/15/2024 8:24 AM CDT 12/15/2024 8:24 AM CDT Narrative [facility] - 12/16/2024 1:35 AM CDT FASTING:YES FASTING: YES us Miguel Piedra MD LAB BLOOD ORDERABLES Juliann iverson Result [facility] [address] [place] [address] * (ABNORMAL) Comprehensive metabolic panel (12/15/2024 8:24 AM CDT) Glucose 110(H) 65 - 99 mg/dL [facility] Comment: Fasting reference interval For someone without known diabetes, a glucose value between 100 and 125 mg/dL is consistent with prediabetes and should be confirmed with a follow-up test. BUN 20 7 - 25 mg/dL [facility] Creatinine 0.98 0.70 - 1.22 mg/dL [facility] eGFR 77 > OR = 60 mL/min/1.7 3m2 [facility] BUN/creat ratio SEE NOTE: 6 - 22 (calc) [facility] Comment: Not Reported: BUN and Creatinine are within reference range. Sodium 137 135 - 146 mmol/L [facility] Potassium, pl 4.2 3.5 - 5.3 mmol/L [facility] Chloride 101 98 - 110 mmol/L [facility] CO2 30 20 - 32 mmol/L [facility] Calcium 9.6 8.6 - 10.3 mg/dL [facility] Protein, sr 6.5 6.1 - 8.1 g/dL [facility] Albumin 4.3 3.6 - 5.1 g/dL [facility] GLOBULIN 2.2 1.9 - 3.7 g/dL (calc) [facility] Alb/glob ratio 2.0 1.0 - 2.5 (calc) [facility] Bilirubin, total 0.7 0.2 - 1.2 mg/dL [facility] Alk phos 60 35 - 144 U/L [facility] AST 20 10 - 35 U/L [facility] ALT (SGPT) 17 9 - 46 U/L [facility] Blood 12/15/2024 8:2 4 AM CDT 12/15/2024 8:24 AM CDT [facility] - 12/16/2024 1:35 AM CDT FASTING:YES FASTING: YES Miguel Piedra MD LAB BLOOD ORDERABLES Juliann iverson Result [facility] [address] [place] [address] * Stool DNA - Cologuard (02/13/2021 8:00 AM CDT) Stool DNA - Cologuard Negative Negative [facility] (CLIA #:[id number]) Comment: NEGATIVE TEST RESULT. A negative Cologuard result indicates a low likelihood that a colorectal cancer (CRC) or advanced adenoma (adenomatous polyps with more advanced pre-malignant features) is present. The chance that a person with a negative Cologuard test has a colorectal cancer is less than 1 in 1500 (negative predictive value >99.9%) or has an advanced adenoma is less than 5.3% (negative predictive value 94.7%). These data are based on a prospective cross-sectional study of 10,000 individuals at average risk for colorectal cancer who were screened with both Cologuard and colonoscopy. (Bassem T. et al, N Engl J Med 2014;370(14):7113-6918) The normal value (reference range) for this assay is negative. COLOGUARD RE-SCREENING RECOMMENDATION: Periodic colorectal cancer screening is an important part of preventive healthcare for asymptomatic individuals at average risk for colorectal cancer. Following a negative Cologuard result, the [place] [employer] and U.S. Multi-Society Task Force screening guidelines recommend a Cologuard re-screening interval of 3 years. References: [place] [employer] Guideline for Colorectal Cancer Screening: https://www.cancer.org/cancer/isbfu-yrngwq-algweg/uyimntjae-lrhpaimpi-yqnngco/ac s-rec ommendations.html.; Tristin BOLANOS, Kishor FLORES, Rigo BARRY, Colorectal Cancer Screening: Recommendations for Physicians and Patients from the U.S. Multi-Society Task Force on Colorectal Cancer Screening , Am J Gastroenterology 2017; 112:1054-0525. TEST DESCRIPTION: Composite algorithmic analysis of stool DNA-biomarkers with hemoglobin immunoassay. Quantitative values of individual biomarkers are not reportable and are not associated with individual biomarker result reference ranges. Cologuard is intended for colorectal cancer screening of adults of either sex, 45 years or older, who are at average-risk for colorectal cancer (CRC). Cologuard has been approved for use by the U.S. FDA. The performance of Cologuard was established in a cross sectional study of average-risk adults aged 50-84. Cologuard performance in patients ages 45 to 49 years was estimated by sub-group analysis of near-age groups. Colonoscopies performed for a positive result may find as the most clinically significant lesion: colorectal cancer [4.0%], advanced adenoma (including sessile serrated polyps greater than or equal to 1cm diameter) [20%] or non- advanced adenoma [31%]; or no colorectal neoplasia [45%]. These estimates are derived from a prospective cross-sectional screening study of 10,000 individuals at average risk for colorectal cancer who were screened with both Cologuard and colonoscopy. (Bassem Nunez et al, N Engl J Med 2014;370(14):5002-1950.) Cologuard may produce a false negative or false positive result (no colorectal cancer or precancerous polyp present at colonoscopy follow up). A negative Cologuard test result does not guarantee the absence of CRC or advanced adenoma (pre-cancer). The current Cologuard screening interval is every 3 years. ([place] [employer] and U.S. Multi-Society Task Force). Cologuard performance data in a 10,000 patient pivotal study using colonoscopy as the reference method can be accessed at the following location: www.[employer]/results. Additional description of the Cologuard test process, warnings and precautions can be found at www.[employer] Group[employer].com. Stool 02/13/2021 8:00 AM CDT 02/14/2021 2:37 PM CDT us Jean Marie Zimmer MD LAB BODY FLUIDS AND STO OLS ORDERABLES Final Result [facility] (CLIA #:[id number]) [place] [address] [place] [address] * COLONOSCOPY (03/06/2012 12:00 AM CDT) Anatomical Region Laterality Modality Other Narrative 03/06/2012 12:00 AM CDT Ordered by an unspecified provider. Procedure Note ProviderDa MD - 03/06/2012 12:00 AM CDT PROCEDURE REPORT Patient: MARY VOGT Account: [id number] Room No: : 1940 Patient Type: SDS Attend.: Boone Orantes M.D. Admit Date: 03/06/2012 Dict.: Boone Orantes M.D. Disch. Date:03/06/2012 NAME OF PROCEDURE: Colonoscopy. HISTORY: This is a 71-year-old male who presents for screeningcolonoscopy. PHYSICAL EXAMINATION: GENERAL: Well developed male. LUNGS: Clear. CARDIOVASCULAR: Unremarkable. PROCEDURE: Colonoscopy was performed with a Nopsec video endoscope.The patient was premedicated by anesthesia. On digital exam, he has gotsmall hemorrhoids. We inserted the endoscope and advanced it to the cecum.The colon was well prepped and visualized. He has diverticular diseaseinvolving the entire colon from the sigmoid to the cecum. However, there is noevidence of acute inflammatory change and no evidence of neoplasia. The colon waswell prepped and so we got to see it pretty well. We brought the scope back, retroflexed in the rectum, examined the inguinal area internally and straightened the scope and removed it. The patient tolerated theprocedure without difficulty. POSTOPERATIVE DIAGNOSES: Diffuse diverticulosis, mild hemorrhoids. Boone Orantes M.D. DR/jose TD: 03/06/2012 14:42 CC: Jean Marie Zimmer M.D. Authenticated by Boone Orantes MD On 03/07/2012 07:42:47 AM Historical Provider ENDOSCOPY PROCEDURES Juliann l Result from Last 3 Months or Most Recently Relevant to Health Maintenance Insurance T MEDICARE T MEDICARE [facility] MEDICARE Care Teams Keno Attendant Relationship Specialty Start Date End Date Miguel Piedra MD [address] [place] [id number] PCP - General Family Medicine 10/23/21 Iram Knight, PT Physical Therapist Physical Therapy 11/07/17 Amy Goodwin DPT Physical Therapist Physical Therapy 11/07/17
[2025-03-14 09:21] VITALS: BP 144/71; PULSE 70; RESP 20; O2SAT 100
[2025-03-14 09:51] VITALS: TEMP 36.5
--- NOTE | 2025-03-14 10:23 | ED_ITS ---
HPI - General Adult General Chief complaint: Fall Stated complaint: fall 03/12/25, hit head & on eliquis Time Seen by Provider: 03/14/25 09:17 History of Present Illness HPI narrative: Patient is an 84-year-old male who presents ER after falling and striking his head. It occurred on 03/12/2025. He is having a dream about playing soccer and then hit his head on the nightstand. He has bruising it is around his left eye and forehead. Patient takes Eliquis. No visual changes. No dizziness. Mild throbbing headache at site of injury. Review of Systems Constitutional: Constitutional: Reports no additional constitutional complaints Musculoskeletal: Musculoskeletal: Reports no additional musculoskeletal complaints Neurologic: Reports system reviewed and no additional complaints, except as documented Exam Narrative: GENERAL: Well-appearing, well-nourished, and in no acute distress. HEAD: Normocephalic, contusion and swelling left forehead and bruising of periorbital region. Eyes: PERRLA, EOMI ENT: Mucous membranes moist. CHEST: Clear to auscultation. No respiratory distress. HEART: Regular rate and rhythm. Normal peripheral pulses. EXTREMITIES: Normal range of motion. No edema. SKIN: Warm, dry, no rash. NEURO: Alert and oriented x3. PSYCH: Normal mood and affect. Course Course Emergency Course: Informed of results. Appropriate for discharge home. Vital Signs Vital signs: Vital Signs Pulse Rate 70 03/14/25 09:21 Respiratory Rate 20 03/14/25 09:21 Blood Pressure 144/71 H 03/14/25 09:21 Pulse Oximetry 100 03/14/25 09:21 Oxygen Delivery Room Air 03/14/25 09:21 Temperature 97.7 F 03/14/25 09:51 Pulse Rate 70 03/14/25 09:21 Respiratory Rate 20 03/14/25 09:21 Blood Pressure 144/71 H 03/14/25 09:21 Pulse Oximetry 100 03/14/25 09:21 Oxygen Delivery Room Air 03/14/25 09:21 Medical Decision Making Vital Signs Vital Signs: Vital Signs Pulse Rate 70 03/14/25 09:21 Respiratory Rate 20 03/14/25 09:21 Blood Pressure 144/71 H 03/14/25 09:21 Pulse Oximetry 100 03/14/25 09:21 Oxygen Delivery Room Air 03/14/25 09:21 Temperature 97.7 F 03/14/25 09:51 Pulse Rate 70 03/14/25 09:21 Respiratory Rate 20 03/14/25 09:21 Blood Pressure 144/71 H 03/14/25 09:21 Pulse Oximetry 100 03/14/25 09:21 Oxygen Delivery Room Air 03/14/25 09:21 Imaging Data Radiologist's impression: ITS Impressions Head CT 03/14/25 10:03 IMPRESSION: 1. No acute intracranial findings. Discharge Plan Discharge Clinical Impression: Contusion of forehead Patient Disposition: Home Condition: Stable Instructions: Facial Contusion (ED) Additional Instructions: Return the ER if you have chest pain and shortness of breath, you cannot keep down food/water, you lose consciousness, or you have additional concerns. Patient Language: Sammarinese Follow-up/Referrals: Dorothea,MD Miguel [Primary Care Provider, Unknown] - 1 Week
[2025-03-14 10:47] VITALS: BP 157/71; PULSE 57; RESP 28; O2SAT 97
== END 2025-03-14 10:50 | disposition home or self-care (01) ==
PROVIDERS: Emergency Provider Emergency Medicine; PCP Hospitalist
DX: S00.83XA Contusion of other part of head, initial encounter (principal); Z79.01 Long term (current) use of anticoagulants; W01.190A Fall on same level from slipping, tripping and stumbling with subsequent striking against furniture, initial encounter
CPT/HCPCS: 70450; 99284